=== PATIENT | female | born 1940 | race Two or more races ===

== ENCOUNTER 2019-06-07 22:24 | Inpatient (IN) | payer MEDICARE, BC ==
[~2019-06-07] VITALS: Ht 160 cm; Wt 49.1 kg
[2019-06-07] MEDS ORDERED: MAG HYDROX/AL HYDROX/SIMETH 30 ML UDC PO PRN (23:30)
[2019-06-07] MEDS ORDERED: BLOOD SUGAR DIAGNOSTIC 1 EACH STRIP IN ONE (23:30)
[2019-06-07] MEDS: SULFAMETH/TRIMETH 800/160 MG 1 UDTAB TABLET PO SCH (23:30)
[2019-06-07] MEDS ORDERED: MAGNESIUM HYDROXIDE 30 ML UDC PO PRN (23:30)
[2019-06-07] MEDS: LACOSAMIDE 50 MG TABLET PO SCH (23:30)
--- NOTE | 2019-06-08 00:31 | NUR ---
GPS RN NOTES: PT REFUSED 2330 SCHEDULE MEDICATION BACTRIM AND VIMPAT PO. PT STATED, "I DONT WANT TO TAKE ANYTHING RIGHT NOW!" EXPLAINED RISKS AND BENEFITS X3 STILL REFUSED. CONTINUE TO MONITOR.
[2019-06-08] MEDS: TEMAZEPAM 7.5 MG CAPSULE PO PRN ×2 (00:51→21:46)
--- NOTE | 2019-06-08 00:53 | NUR ---
GPS RN NOTES: PT STATED, " I HAVNT SLEEP IN 2 DAYS. WHERES MY MEDICATION. I WANT OT SLEEP!" OFFERED RESTORIL 7.5 MG PO PRN ORDERED. PT TOLERATED MEDICATION WELL. CONTINUE TO MONITOR.
[2019-06-08 01:46] VITALS: BP 118/68
--- NOTE | 2019-06-08 01:54 | NUR ---
GPS RN NOTES: ADMITTED 78 Y/O FEMALE. [facility] GPS UNIT ON A 5150. PER HOLD, PT CAME FROM HER LONG-TERM DUE TO BEING AGITATED, AGGRESSIVE, STRIKING OUT ON STAFF AND UNABLE TO CONTRACT SAFETY. UPON FACE TO FACE ASSESSMENT PT IS ALERT/ ORIENTED X1, UNCOOPERATIVE, CONFUSED, FORGETFUL, DISORGANIZED, POOR HISTORIAN, AGITATED, NEEDY, AND POOR IMPULSE CONTROL. PT STATED, " I DONT KNOW WHY IM HERE!" ROWAN S/I AND H/I AT THE MOMENT. PT WAS FROM [place] AND CAN SPEAK AND UNDERSTANDS STATELESS. PT REFUSED TO SIGN CONSENT6 FORM DUE TO BEING CONFUSED. ENVIRONMENTAL SAFETY CHECK DONE Q15 MIN. ENCOURAGE PT TO VERBALIZE FEELINGS AND CONCERNS TO STAFF. ORIENTED TO THE UNIT. CHECKED BELONGING AND CONTRABAND. NURSING ASSESSMENT DONE. PT REFUSED PICTURE FOR IDENTIFICATION. HOME ECONOMICS EXPERT CHANGE PT NIGHT GOWN, HOME ECONOMICS EXPERT NOTED DRESSING ON PTS SACRAL AREA NEAR BUTTOCKS. PT REFUSED BODY ASSESSMENT AND ASSESSMENT OF DRESSING AREA. PT REFUSED PICTURE WELL. PT STATED, "I DONT WANT TO TAKE ANY PICTURE. IM GOING TO GET MAD RIGHT NOW! STOP! ALL I WANT IS TO SLEEP!" EXPLAINED THE RISKS AND BENEFITS X3. PT STILL REFUSED. WOUND CONSULT ORDERED. INITIAL BLOOD SUGAR CHECKED AND DONE PROVIDE PT W/ HANDBOOK AND MED GUIDE. VITALS ARE W/ NORMAL LEVELS. NO S/S OF RESP DISTRESS. BREATHING EVEN AND UNLABORED. CONTINUE TO MONITOR.
[2019-06-08 03:10] VITALS: BP 122/52
[2019-06-08] MEDS: clonazePAM 0.5 MG TABLET PO PRN ×2 (03:16→07:52)
--- NOTE | 2019-06-08 03:17 | NUR ---
GPS RN NOTES: UPON DOING ROUNDS PT IS VERY UNCOOPERATIVE, UNABLE TO FOLLOW DIRECTIONS, SCREAMING, BANGING HANDS ON TABLE, GETTING OUT OF BED, PARANOID, IRRITABLE, HYPERVERBAL, AND ANXIOUS. PT IS YELLING, "NOMAN WALLER!" OFFERED KLONOPIN 0.5 MG PO PRN ORDERED. PT AGREED AND TOLERATED MEDICATION WELL CONTINUE TO MONITOR.
--- NOTE | 2019-06-08 07:13 | NUR ---
DR. SCHAEFER NOTIFIED CALLED & LEFT A VOICEMAIL TO OLIVE JACOBS THAT MIGUELArchieDASHA WAS ADMITTED UNDER HIS CARE.
--- NOTE | 2019-06-08 07:17 | NUR ---
GPS RN NOTES: PT ALLOWED TO CHECK BODY AND TAKE PICTURES. PICTURES FILED INTO CHART. PT PRESENTED LUE ARM AND RUE ARM DISCOLORATION AND REDNESS ON SACRUM AREA. CONT TO MONITOR.
[2019-06-08] MEDS ORDERED: PANT40TA2 PO (07:47)
[2019-06-08] MEDS ORDERED: CLON0.1T PO (07:47)
[2019-06-08] MEDS ORDERED: DIVA500T54 PO (07:47)
[2019-06-08] MEDS ORDERED: LACO50TA2 PO (07:47)
[2019-06-08] MEDS ORDERED: SULF1TAB48 PO (07:47)
[2019-06-08] MEDS ORDERED: QUET25TA PO (07:47)
[2019-06-08] MEDS ORDERED: TEMA30CA PO (07:47)
[2019-06-08] MEDS ORDERED: LORA-258 PO (07:47)
[2019-06-08 08:00] VITALS: BP 106/78
[2019-06-08] MEDS: LACOSAMIDE 50 MG TABLET PO SCH ×2 (08:03→21:45)
[2019-06-08] MEDS: PANTOPRAZOLE 40 MG TABLET.DR PO SCH (08:03)
[2019-06-08] MEDS: SULFAMETH/TRIMETH 800/160 MG 1 UDTAB TABLET PO SCH ×2 (08:03→21:46)
[2019-06-08 08:04] LABS: ALBUMIN 2.8 g/dL (3.4-5.0); BILIRUBIN,TOTAL 0.3 mg/dL (0.2-1.0); CALCIUM, SERUM 9.2 mg/dL (8.5-10.1); CREATININE 0.8 mg/dL (0.6-1.3); POTASSIUM 3.7 mmol/L (3.5-5.1); TOTAL PROTEIN, SERUM 7.3 g/dL (6.4-8.2)
[2019-06-08 08:29] LABS: CHOLESTEROL 175 mg/dL (<200); HDL CHOLESTEROL 56 mg/dL (40-60); LDL 104 mg/dL (0-99); TRIGLYCERIDES 112 mg/dL (30-150)
--- NOTE | 2019-06-08 11:45 | NUR ---
WOUND CARE CONSULT: PT PRESENTS WITH SACRAL SCAR, PRESENT ON ADMISSION. RECOMMENDATIONS MADE FOR SKIN PROTECTION. DISCUSSED WITH NURSING STAFF. WILL SEE PRN. MUNIZ IN AGREEMENT WITH PLAN OF CARE. Addendum: 06/08/19 at 1145 by CAIT MORFIN WNDNU Amended: Links added.
[2019-06-08] MEDS: Z GUARD REMEDY 2 OZ OINT TP SCH (12:50)
--- NOTE | 2019-06-08 15:09 | NUR ---
Group Note: SW encouraged pt to participate in group on 06/08/19 at 2pm discussing discharge planning. Pt appeared to be confused and disoriented and was unable to participate group therapy. Pt also presented in a gerichair and appeared to be aggressive. Pt stated that her son takes care of all her affairs and she does not know what the SW was talking about with the facilities that were mentioned to her.
--- NOTE | 2019-06-08 15:36 | NUR ---
DPOA Contact: PIPPA called the pts son, Alfreda ([phone]), and discussed the pts initial treatment and discharge plan. Pts son stated that he does not want the pt to return to [facility] and wants the pt to be at [facility] in [place].
[2019-06-08 16:00] VITALS: BP 137/86
--- NOTE | 2019-06-08 16:12 | NUR ---
Initial Discharge Plan: Pt currently resides at [facility] located at [address] [place] [address]; . Per pt's son, Alfreda ([phone]), he would like the pt to be discharged to a different facility. PIPPA will work with the MD and the pt and pts DPOA regarding appropriate discharge planning. SW will form a safe and proper discharge.
[2019-06-08] MEDS: QUETIAPINE FUMARATE 25 MG TABLET PO SCH (16:26)
--- NOTE | 2019-06-08 17:36 | NUR ---
GPS RN NOTE: DR MCKEON NOTIFIED TO RECONCILED PT HOME MEDICATION SEIZURE MEDICATION AND PT CT OF HEAD WAS DONE THREE TIME LAST ONE YESTERDAY PT FAMILY.WILL CONTINUE MONITORING.
[2019-06-08 19:38] VITALS: BP 99/63
[2019-06-08] MEDS ORDERED: MIRTAZAPINE 15 MG TABLET PO SCH (22:00)
--- NOTE | 2019-06-09 02:45 | NUR ---
PT UP MOST OF THE NIGHT AFTER TAKING PM MEDS AND RESTORIL 7.5MG FOR SLEEP. REFUSED GOING TO BED, STATING SHE WANTS TO REMAIN IN DAY ROOM. DISORIENTED, LABILE, NEEDY. WILL CONTINUE TO MONITOR.
--- NOTE | 2019-06-09 07:50 | NUR ---
GPS RN NOTE: DR MCKEON IN THE UNIT AWARE OF TO RECONCILED DEPAKOTE FOR SEIZURE,NEW ORDER TO DC CT OF HEAD ORDER PLACED AND CARED OUT . WILL CONTINUE MONITORING.
[2019-06-09 08:00] VITALS: BP 133/68
[2019-06-09] MEDS: clonazePAM 0.5 MG TABLET PO PRN (08:01)
[2019-06-09] MEDS: LACOSAMIDE 50 MG TABLET PO SCH ×2 (08:01→20:21)
[2019-06-09] MEDS: PANTOPRAZOLE 40 MG TABLET.DR PO SCH (08:01)
[2019-06-09] MEDS: SULFAMETH/TRIMETH 800/160 MG 1 UDTAB TABLET PO SCH ×2 (08:01→20:20)
[2019-06-09] MEDS: Z GUARD REMEDY 2 OZ OINT TP SCH (08:04)
[2019-06-09] MEDS: QUETIAPINE FUMARATE 25 MG TABLET PO SCH ×2 (08:05→21:50)
--- NOTE | 2019-06-09 08:10 | NUR ---
GPS RN NOTE: PT FEELING ANXIOUS KLONOPIN 0.5 MG PO PRN GIVEN PER ORDER.
[2019-06-09] MEDS ORDERED: CLONIDINE HCL 0.1 MG TABLET PO PRN (10:00)
[2019-06-09] MEDS ORDERED: SULFAMETH/TRIMETH 800/160 MG 1 UDTAB TABLET PO SCH (10:00)
[2019-06-09] MEDS: DIVALPROEX SODIUM 500 MG TABLET.DR PO SCH ×2 (10:40→20:20)
[2019-06-09 16:00] VITALS: BP 155/73
[2019-06-09 18:06] LABS: APPEARANCE,URINE CLOUDY (CLEAR); BILIRUBIN,URINE SMALL (NEGATIVE); BLOOD, URINE LARGE Ery/uL (NEGATIVE); COLOR,URINE ORANGE (YELLOW); KETONES,URINE NEGATIVE (NEGATIVE); LEUKOCYTE ESTERASE ,URINE LARGE (NEGATIVE); NITRITE, URINE NEGATIVE (NEGATIVE); PH,URINE 6.5 (5.0-8.0); PROTEIN,URINE 30 mg/dl (NEGATIVE); UGLUCOSE NEGATIVE (NEGATIVE); UROBILINOGEN,URINE 0.2 EU/dL (0.2)
[2019-06-09 18:38] LABS: RBC,URINE 21-50 /HPF (0-2)
[2019-06-09 18:39] LABS: BACTERIA,URINE Moderate /HPF (None Seen); SQUAMOUS EPITHELIAL CELL,UR Few /HPF (None Seen); WBC,URINE TOO NUMEROUS TO COUN /HPF (0-3)
[2019-06-09 20:00] VITALS: BP 134/81
--- NOTE | 2019-06-09 20:30 | NUR ---
GPS RN NOTES TOOK HER PO MEDS, CRUSHED WITH PUDDING.
[2019-06-09] MEDS ORDERED: LACOSAMIDE 50 MG TABLET PO SCH (21:00)
[2019-06-09] MEDS: TRAZODONE 50 MG TABLET PO SCH (21:48)
[2019-06-09] MEDS: MIRTAZAPINE 15 MG TABLET PO SCH (21:48)
--- NOTE | 2019-06-09 22:00 | NUR ---
GPS RN NOTES STARTED ON TRAZODONE,SEROQUEL AND REMERON,CRUSHED AND MIXED WITH PUDDING,TOOK ONLY 50% OF IT.
[2019-06-09 22:14] VITALS: BP 134/81
--- NOTE | 2019-06-10 01:34 | NUR ---
GPS RN NOTES DOOZING OFF SITTING ON JESUS CHAIR,BEING WATCHED BY CATH LABORATORY TECHNICIAN IN THE DINING ROOM,TALKING TO SELF AT TIMES.
[2019-06-10] MEDS: TEMAZEPAM 15 MG CAPSULE PO PRN ×2 (01:44→21:44)
--- NOTE | 2019-06-10 01:44 | NUR ---
GPS RN NOTES ON JESUS CHAIR,AWAKE,VERBALLY ABUSIVE,TALKING TO SELF MOST OF THE TIME,CURSING STAFF.MEDICATED WITH RESTORIL 15MG PO MIXED WITH APPLE SAUCE,TAKEN WELL.
--- NOTE | 2019-06-10 03:00 | NUR ---
GPS RN NOTES SLEEPING THIS TIME
[2019-06-10] MEDS: DIVALPROEX SODIUM 500 MG TABLET.DR PO SCH ×3 (05:00→20:49)
[2019-06-10] MEDS: PANTOPRAZOLE 40 MG TABLET.DR PO SCH (07:35)
--- NOTE | 2019-06-10 07:45 | NUR ---
RN NOTE- DURING MED PASS, THIS RN FOUND PT SITTING ON FLOOR BESIDE CHAIR IN ROOM. PT ALERT, ORIENTED TO SELF, EVALUATION SHOWS NO APPARENT INJURIES, PAIN OR SKIN PROBLEMS. VS - 102/65. HR-92, RR- 18, TEMP- 98.1, SATURATION 99% RA. SALES CONSULTANT INSURANCE, AND CARTOGRAPHIC ENGINEER NOTIFIED. ATTEMPTED TO CALL LILLI- BROTHER OF PT TO NOTIFY BUT NO VM SET UP AND NO ANSWER. ALEKSEY DICKINSON TO SEE PT TODAY. WILL MONITOR. INCIDENT REPORT COMPLETED.
[2019-06-10 08:00] VITALS: BP 143/81
[2019-06-10] MEDS: SULFAMETH/TRIMETH 800/160 MG 1 UDTAB TABLET PO SCH ×2 (08:13→20:48)
[2019-06-10] MEDS: LACOSAMIDE 50 MG TABLET PO SCH ×2 (08:13→20:48)
[2019-06-10] MEDS: QUETIAPINE FUMARATE 25 MG TABLET PO SCH ×2 (08:13→21:44)
[2019-06-10] MEDS: Z GUARD REMEDY 2 OZ OINT TP PRN (08:14)
[2019-06-10] MEDS: Z GUARD REMEDY 2 OZ OINT TP SCH (08:14)
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
[2019-06-10 16:00] VITALS: BP 110/70
[2019-06-10 20:20] VITALS: BP 100/67
[2019-06-10] MEDS: TRAZODONE 50 MG TABLET PO SCH (21:43)
[2019-06-10] MEDS: MIRTAZAPINE 15 MG TABLET PO SCH (21:43)
--- NOTE | 2019-06-10 22:48 | NUR ---
PT ASKED FOR MEDICATION FOR SLEEP. RESTORIL 15MG GIVEN PO ORDERED AT 2144, AT 2244 PT STILL AWAKE. WILL CONTINUE TO MONITOR.
[2019-06-11] MEDS: DIVALPROEX SODIUM 500 MG TABLET.DR PO SCH ×3 (05:13→21:36)
--- NOTE | 2019-06-11 06:57 | NUR ---
PT HAS SLIGHT TREMORS ON BOTH HANDS. PER PT SON SHE HAS BEEN ON VALIUM FOR OVER FORTY YEARS AND WOULD WANT HER TO BE PUT BACK ON IT. WILL ENDORSE TO AM SHIFT TO REPORT TO .
[2019-06-11 08:00] VITALS: BP 134/69
[2019-06-11] MEDS: Z GUARD REMEDY 2 OZ OINT TP SCH (08:22)
[2019-06-11] MEDS: QUETIAPINE FUMARATE 25 MG TABLET PO SCH (08:22)
[2019-06-11] MEDS: PANTOPRAZOLE 40 MG TABLET.DR PO SCH (08:22)
[2019-06-11] MEDS: LACOSAMIDE 50 MG TABLET PO SCH ×2 (08:22→21:36)
[2019-06-11] MEDS: clonazePAM 0.5 MG TABLET PO PRN (13:37)
[2019-06-11] MEDS: ACETAMINOPHEN 325 MG TABLET PO PRN (13:37)
--- NOTE | 2019-06-11 13:41 | NUR ---
PATIENT C/O PAIN 5/10 IN LOWER BACK AND IS ANXIOUS. PRN TYLENOL AND KLONOPIN PO GIVEN.
[2019-06-11 16:00] VITALS: BP 138/71
[2019-06-11 19:59] VITALS: BP 136/78
[2019-06-11] MEDS: TRAZODONE 50 MG TABLET PO SCH (21:36)
[2019-06-11] MEDS: MIRTAZAPINE 15 MG TABLET PO SCH (21:36)
[2019-06-11] MEDS ORDERED: QUETIAPINE FUMARATE 25 MG TABLET PO SCH (22:00)
[2019-06-12] MEDS: TEMAZEPAM 15 MG CAPSULE PO PRN ×3 (00:25→23:22)
[2019-06-12] MEDS: DIVALPROEX SODIUM 500 MG TABLET.DR PO SCH ×3 (05:07→21:49)
[2019-06-12 08:00] VITALS: BP 149/79
[2019-06-12] MEDS: clonazePAM 0.5 MG TABLET PO PRN ×2 (08:23→16:32)
[2019-06-12] MEDS: LACOSAMIDE 50 MG TABLET PO SCH ×2 (08:23→21:50)
[2019-06-12] MEDS: PANTOPRAZOLE 40 MG TABLET.DR PO SCH (08:24)
[2019-06-12] MEDS: Z GUARD REMEDY 2 OZ OINT TP SCH (08:24)
[2019-06-12] MEDS: QUETIAPINE FUMARATE 25 MG TABLET PO SCH (08:24)
--- NOTE | 2019-06-12 08:26 | NUR ---
PATIENT IS RESTLESS. PRN KLONOPIN GIVEN.
[2019-06-12 16:00] VITALS: BP 117/81
[2019-06-12] MEDS: ACETAMINOPHEN 325 MG TABLET PO PRN (16:32)
--- NOTE | 2019-06-12 16:32 | NUR ---
PRN TYLENOL AND KLONOPIN GIVEN FOR PAIN AND RESTLESSNESS
[2019-06-12 20:14] VITALS: BP 128/73
[2019-06-12] MEDS: TRAZODONE 50 MG TABLET PO SCH (21:49)
[2019-06-12] MEDS: QUETIAPINE FUMARATE 100 MG TABLET PO SCH (21:49)
[2019-06-12] MEDS: MIRTAZAPINE 15 MG TABLET PO SCH (21:50)
[2019-06-13] MEDS: DIVALPROEX SODIUM 500 MG TABLET.DR PO SCH ×3 (05:10→21:12)
[2019-06-13 08:00] VITALS: BP 118/71
[2019-06-13] MEDS: PANTOPRAZOLE 40 MG TABLET.DR PO SCH (08:06)
[2019-06-13] MEDS: QUETIAPINE FUMARATE 25 MG TABLET PO SCH ×2 (08:44→08:45)
[2019-06-13] MEDS: Z GUARD REMEDY 2 OZ OINT TP SCH (08:44)
[2019-06-13] MEDS: LACOSAMIDE 50 MG TABLET PO SCH ×2 (08:44→21:12)
--- NOTE | 2019-06-13 09:27 | NUR ---
Assisted Living Referral: PIPPA faxed a referral to [facility] with attn to the Sales Department to the fax number: [phone].
[2019-06-13 16:00] VITALS: BP 133/69
[2019-06-13] MEDS: clonazePAM 0.5 MG TABLET PO PRN (16:26)
--- NOTE | 2019-06-13 16:26 | NUR ---
RN NOTE: PT AGITATED. BANGING ON THE HER TABLE YELLING " RAJNI,RAJNI". MED WITH CLONAZEPAAM 0.5MGPO PRN
[2019-06-13 20:42] VITALS: BP 128/55
[2019-06-13] MEDS: QUETIAPINE FUMARATE 100 MG TABLET PO SCH (21:59)
[2019-06-13] MEDS: TRAZODONE 50 MG TABLET PO SCH (21:59)
[2019-06-13] MEDS: MIRTAZAPINE 15 MG TABLET PO SCH (21:59)
[2019-06-13] MEDS: TEMAZEPAM 15 MG CAPSULE PO PRN (22:26)
[2019-06-14] MEDS: DIVALPROEX SODIUM 500 MG TABLET.DR PO SCH ×3 (05:06→21:00)
[2019-06-14 08:00] VITALS: BP 144/59
[2019-06-14] MEDS: PANTOPRAZOLE 40 MG TABLET.DR PO SCH (08:21)
[2019-06-14] MEDS: QUETIAPINE FUMARATE 25 MG TABLET PO SCH ×2 (08:21)
[2019-06-14] MEDS: LACOSAMIDE 50 MG TABLET PO SCH ×2 (08:21→21:00)
[2019-06-14] MEDS: Z GUARD REMEDY 2 OZ OINT TP SCH (08:22)
[2019-06-14] MEDS: clonazePAM 0.5 MG TABLET PO PRN (09:19)
--- NOTE | 2019-06-14 09:19 | NUR ---
RN NOTE: PT SCREAMING AND YELLING. VISIBLY AGITATED. MED WITH KLONIPIN 0.5 MG PO PRN
--- NOTE | 2019-06-14 09:44 | NUR ---
Assisted Living Contact: SW called [facility] and spoke to the javascript front end developer asking to speak to the admissions department and the SW was told that they were not available at this time so the SW left a message. SW will follow up.
--- NOTE | 2019-06-14 09:47 | NUR ---
DPOA Contact: PIPPA called the pts son, Alfreda ([phone]), and he stated that he would like to try the assisted living facility called [facility]. He stated that the one in [place] is too far.
--- NOTE | 2019-06-14 09:58 | NUR ---
Assisted Living Referral: PIPPA faxed a referral to [place] [facility] to the fax number: [phone].
--- NOTE | 2019-06-14 10:02 | NUR ---
Probable Cause (PC) Hearing Notification: PIPPA called the pts son, Alfreda ([phone]), and informed him about the process and all the possible outcomes. He stated that he cannot be involved with the meeting today but does not think that the pt should be released from her hold because she cannot care for herself.
--- NOTE | 2019-06-14 10:50 | NUR ---
Assisted Living Contact: Vika from [facility] stated that they are unable to accept the pt because she appears to be far too psychotic and has medical needs.
[2019-06-14 16:00] VITALS: BP 130/60
[2019-06-14] MEDS: ACETAMINOPHEN 325 MG TABLET PO PRN (19:26)
[2019-06-14 20:43] VITALS: BP 108/71
[2019-06-14] MEDS: TRAZODONE 50 MG TABLET PO SCH (21:00)
[2019-06-14] MEDS: QUETIAPINE FUMARATE 100 MG TABLET PO SCH (21:01)
[2019-06-14] MEDS: MIRTAZAPINE 15 MG TABLET PO SCH (21:01)
[2019-06-15] MEDS: DIVALPROEX SODIUM 500 MG TABLET.DR PO SCH ×3 (06:05→20:57)
[2019-06-15 08:00] VITALS: BP 139/79
[2019-06-15] MEDS: PANTOPRAZOLE 40 MG TABLET.DR PO SCH (08:27)
[2019-06-15] MEDS: QUETIAPINE FUMARATE 25 MG TABLET PO SCH (08:27)
[2019-06-15] MEDS: ACETAMINOPHEN 325 MG TABLET PO PRN ×2 (08:28→18:11)
[2019-06-15] MEDS: LACOSAMIDE 50 MG TABLET PO SCH ×2 (08:28→20:57)
[2019-06-15] MEDS: clonazePAM 0.5 MG TABLET PO PRN ×2 (08:28→18:11)
[2019-06-15] MEDS: Z GUARD REMEDY 2 OZ OINT TP SCH (08:34)
--- NOTE | 2019-06-15 09:15 | NUR ---
PRN TYLENOL AND KLONOPIN GIVEN FOR RESTLESSNESS AND PAIN 4/10 TO LOWER BACK
--- NOTE | 2019-06-15 10:54 | NUR ---
DPOA Contact: PIPPA called the pts son, Alfreda ([phone]), and left a voicemail stating that the SW would like to discuss the pts discharge to an Assisted Living because [facility] has denied the pt.
--- NOTE | 2019-06-15 12:24 | NUR ---
DPOA Contact: PIPPA called the pts son, Alfreda ([phone]), after he left the SW a voicemail. PIPPA and DPOA discussed that the pt is not being accepted at [facility] and PIPPA stated that he may want to consider alternative placement. PIPPA recommended [facility] and informed him that the will be sending a referral.
--- NOTE | 2019-06-15 14:18 | NUR ---
Assisted Living Referral: PIPPA faxed a referral to [facility] with attn to Pierce to the fax number: [phone].
[2019-06-15 16:00] VITALS: BP 105/62
--- NOTE | 2019-06-15 16:20 | NUR ---
Assisted Living Contact: Lainey ([phone]) from [facility] called the SW and stated that she will contact the pts son to discuss the pt and whether or not she will be accepted to their facility.
--- NOTE | 2019-06-15 16:22 | NUR ---
Placement Referral: PIPPA faxed a referral to [facility] (with attn to Carlos Manuel) to the fax number: [phone].
--- NOTE | 2019-06-15 18:17 | NUR ---
PRN TYLENOL AND KLONOPIN GIVEN FOR RESTLESSNESS AND PAIN TO LOWER BACK
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
[2019-06-15 20:00] VITALS: BP 99/59
[2019-06-15 20:09] VITALS: BP 99/59
[2019-06-15 20:50] VITALS: BP 104/63
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
[2019-06-15] MEDS: MIRTAZAPINE 15 MG TABLET PO SCH (22:18)
[2019-06-15] MEDS: QUETIAPINE FUMARATE 100 MG TABLET PO SCH (22:18)
[2019-06-15] MEDS: TRAZODONE 50 MG TABLET PO SCH (22:18)
--- NOTE | 2019-06-15 23:43 | NUR ---
GPS RN NOTE PATIENT HAD PT EVAL BEFORE BUT NO NOTES NOTED FROM PT EVAL. SON REQUESTED ANOTHER PT EVAL AGAIN, MADE AWARE WITH NEW ORDER. NOTED & CARRIED OUT. WILL ENDORSE TO AM RN TO F/U WITH PT IN AM.
[2019-06-16] MEDS: Z GUARD REMEDY 2 OZ OINT TP PRN (00:10)
[2019-06-16] MEDS: DIVALPROEX SODIUM 500 MG TABLET.DR PO SCH ×3 (05:02→21:22)
--- NOTE | 2019-06-16 05:58 | NUR ---
GPS RN NOTE AFTER BEGINNING OF TREND INVESTIGATOR, WHILE ASSISTING PATIENT TO BED SINCE SHE WAS READY TO SLEEP, PATIENT NOTED WITH RIGHT & LEFT BUTTOCK REDNESS/WOUND. UNABLE TO TAKE THE PICTURE & MEASUREMENTS OF THE WOUND AREA AT THAT TIME DUE TO PATIENT'S UNCOOPERATIVE BEHAVIOR. KEPT CLEAN & DRY, Z GUARD APPLIED. REMINDED THE PT. TO TURN & REPOSITION IN BED. PATIENT IS ABLE TO TURN & REPOSITION IN BED INDEPENDENTLY. PICTURE TAKEN AT THIS TIME BUT EXACT MEASUREMENTS WERE NOT DONE BECAUSE PT. GETS EASILY AGITATED & ANXIOUS WHEN TURNED TO THE SIDE FOR LONG TIME. WILL ENDORSE TO AM SHIFT TO TAKE THE MEASUREMENTS. MADE AWARE. WOUND CARE CONSULT ORDERED. INVERTER AND CLIPPER & ADULT EDUCATION INSTRUCTOR NOTIFIED. WILL CONTINUE TO MONITOR THE PATIENT FOR ANY CHANGES.
[2019-06-16] MEDS: ACETAMINOPHEN 325 MG TABLET PO PRN (07:26)
[2019-06-16] MEDS: clonazePAM 0.5 MG TABLET PO PRN (07:26)
--- NOTE | 2019-06-16 07:30 | NUR ---
PRN KLONOPIN PATIENT IS VERY ANXIOUS, RESTLESS, SCREAMING AT THIS TIME. PRN KLONOPIN 0.25 MG PO GIVEN.
--- NOTE | 2019-06-16 07:31 | NUR ---
PRN TYLENOL GIVEN PATIENT C/O LOWER BACK PAIN & WANTED TO TAKE PAIN MEDICINE, PRN TYLENOL 650 MG PO GIVEN.
--- NOTE | 2019-06-16 07:47 | NUR ---
GPS RN NOTE CALLED PT'S SON FLACA, NOTIFIED HIM ABOUT SKIN ASSESSMENT FINDINGS OF RIGHT & LEFT BUTTOCK. SON VERBALIZED THAT HE WANTS TO TALK TO THE DIRECTOR OF THE UNIT. AM CHARGE NURSE & PRIMARY CARE NURSE MADE AWARE ABOUT FLACA'S CONCERN. AM RN STATED THAT SHE WILL GIVE THE MESSAGE TO DENNYS. BUSINESS LOAN PROCESSOR CHARGE NURSE HAVE ALSO INFORMED TO ROCK WOOL APPLICATOR OF THE UNIT. ENDORSED TO AM RN TO TAKE THE MEASUREMENTS OF RIGHT & LEFT BUTTOCK REDNESS/WOUND WELL SINCE PATIENT IS VERY ANXIOUS, RESTLESS, YELLING/SCREAMING & UNCOOPERATIVE AT THIS TIME.
--- NOTE | 2019-06-16 07:59 | NUR ---
PATIENT IS BEING VERY RESISTIVE WITH CARE THIS MORNING. PATIENT SCREAMING AND NOT LETTING US PROCEED WITH CARE. FAILED ATTEMPTS AT TRYING TO OFFLOAD BUTTOCKS.
[2019-06-16 08:00] VITALS: BP 125/73
--- NOTE | 2019-06-16 08:26 | NUR ---
UNABLE TO RE-DIRECT PATIENT. PATIENT IS SHOUTING CALLING EVERYONE DEANNA. HAVE TO INFORM PATIENT MULTIPLE TIMES NOT TO SHOUT.
[2019-06-16] MEDS: QUETIAPINE FUMARATE 25 MG TABLET PO SCH (08:29)
[2019-06-16] MEDS: LACOSAMIDE 50 MG TABLET PO SCH ×2 (08:29→21:22)
[2019-06-16] MEDS: PANTOPRAZOLE 40 MG TABLET.DR PO SCH (08:29)
[2019-06-16] MEDS: Z GUARD REMEDY 2 OZ OINT TP SCH (08:29)
--- NOTE | 2019-06-16 10:48 | NUR ---
WOUND CARE CONSULT PATIENT SEEN AND SKIN INTEGRITY ASSESSMENT DONE. PATIENT PRESENTS WITH BILATERAL BUTTOCKS INCONTINENT ASSOCIATED SKIN DAMAGE WITH FUNGAL RASHES. TREATMENT RECOMMENDATIONS MADE, ALL SKIN MANAGEMENT DISCUSSED WITH NURSING STAFF AT THE BEDSIDE. PATIENT WITH OMA AT 17, PATIENT ABLE TO MOVE ALL EXTREMITIES, PATIENT IS VERY CONFUSED AND IS CONSTANTLY ATTEMPTING TO GET OUT OF BED. THERE IS A SITTER AT THE BEDSIDE FOR SAFETY. WOUND CARE WILL CONTINUE TO MONITOR. Addendum: 06/16/19 at 1052 by NATHANIEL ZELAYA WNELLENU Amended: Links added. Addendum: 06/16/19 at 1232 by NATHANIEL ZELAYA WNELLENU ADDITIONAL NOTE: LIMB DRIVER CALLED PTS SON AND SPOKE TO HIM AT LENGTH ABOUT PATIENT'S SKIN ISSUES AND PATIENT SON WAS GRATEFUL FOR THE PHONE CALL AND THE EXPLANATIONS GIVEN TO HIM.
--- NOTE | 2019-06-16 11:51 | NUR ---
Group Note: SW encouraged pt to participate in group on 06/15/19 at 2pm discussing discharge planning. Pt is manic and verbally aggressive. Pt was presented in a gerichair the whole day. Pt was inappropriate for group therapy. SW informed the pt that the SW is seeking placement in an Assisted Living and informed her that the SW has been in contact with the pts son.
[2019-06-16] MEDS: CLOTRIMAZOLE 1% 15 GM TUBE TP SCH ×2 (12:54→17:00)
[2019-06-16] MEDS ORDERED: QUETIAPINE FUMARATE 25 MG TABLET PO ONE (14:30)
[2019-06-16 16:00] VITALS: BP 122/71
[2019-06-16] MEDS ORDERED: METH1ADH6 TP (19:00)
[2019-06-16] MEDS: TRAZODONE 50 MG TABLET PO SCH (21:22)
[2019-06-16] MEDS: MIRTAZAPINE 15 MG TABLET PO SCH (21:22)
[2019-06-16] MEDS: QUETIAPINE FUMARATE 100 MG TABLET PO SCH (21:22)
[2019-06-16 22:14] VITALS: BP 105/59
[2019-06-17] MEDS: DIVALPROEX SODIUM 500 MG TABLET.DR PO SCH ×3 (05:29→21:42)
[2019-06-17 07:03] LABS: BASOPHILS % (AUTO) 0.9 % (0.0-2.0); EOSINOPHILS % (AUTO) 1.6 % (0.0-6.0); HEMATOCRIT 41 % (33-45); HEMOGLOBIN 13.6 g/dL (11.5-14.8); LYMPHOCYTES # (AUTO) 1.8 /CMM (0.8-4.8); LYMPHOCYTES % (AUTO) 44.2 % (20.0-44.0); MEAN CORPUSCULAR HGB CONC 33 g/dl (31.0-36.0); MEAN CORPUSCULAR VOLUME 92 fL (82-100); MONOCYTES # (AUTO) 0.5 /CMM (0.1-1.30); MONOCYTES % (AUTO) 12.5 % (2.0-12.0); NEUTROPHILS # (AUTO) 1.6 /CMM (1.8-8.9); NEUTROPHILS % (AUTO) 40.8 % (43.0-81.0); PLATELET COUNT (AUTO) 187 /CMM (150-450); RED BLOOD CELL COUNT(AUTO) 4.51 MIL/uL (4.0-5.2)
[2019-06-17 07:16] LABS: CALCIUM, SERUM 8.7 mg/dL (8.5-10.1); CREATININE 0.8 mg/dL (0.6-1.3); POTASSIUM 3.8 mmol/L (3.5-5.1)
[2019-06-17 08:00] VITALS: BP 127/76
[2019-06-17] MEDS: LACOSAMIDE 50 MG TABLET PO SCH ×2 (08:31→21:41)
[2019-06-17] MEDS: Z GUARD REMEDY 2 OZ OINT TP SCH (08:31)
[2019-06-17] MEDS: PANTOPRAZOLE 40 MG TABLET.DR PO SCH (08:31)
[2019-06-17] MEDS: clonazePAM 0.5 MG TABLET PO PRN (08:39)
[2019-06-17] MEDS ORDERED: QUETIAPINE FUMARATE 25 MG TABLET PO SCH (09:00)
[2019-06-17] MEDS ORDERED: CEPHALEXIN MONOHYDRATE 500 MG CAPSULE PO SCH (12:00)
[2019-06-17] MEDS: CLOTRIMAZOLE 1% 15 GM TUBE TP SCH ×2 (12:30→16:34)
[2019-06-17] MEDS: CEPHALEXIN MONOHYDRATE 500 MG CAPSULE PO SCH ×2 (12:32→23:47)
[2019-06-17] MEDS: OLANZAPINE 2.5 MG TABLET PO SCH ×2 (14:57→16:35)
[2019-06-17 16:00] VITALS: BP 119/68
[2019-06-17 20:40] VITALS: BP_SYST 113; BP_SYST 119; BP_DIAS 68; BP_DIAS 70
[2019-06-17] MEDS: TRAZODONE 50 MG TABLET PO SCH (21:41)
[2019-06-17] MEDS: MIRTAZAPINE 15 MG TABLET PO SCH (21:42)
[2019-06-17] MEDS: TEMAZEPAM 15 MG CAPSULE PO PRN (21:48)
[2019-06-18] MEDS: DIVALPROEX SODIUM 500 MG TABLET.DR PO SCH ×3 (06:00→21:33)
[2019-06-18 08:00] VITALS: BP 121/81
[2019-06-18] MEDS: LACOSAMIDE 50 MG TABLET PO SCH ×2 (08:20→21:33)
[2019-06-18] MEDS: OLANZAPINE 2.5 MG TABLET PO SCH ×2 (08:20→16:07)
[2019-06-18] MEDS: Z GUARD REMEDY 2 OZ OINT TP SCH (08:21)
[2019-06-18] MEDS: CEPHALEXIN MONOHYDRATE 500 MG CAPSULE PO SCH ×2 (08:21→23:11)
[2019-06-18] MEDS: CLOTRIMAZOLE 1% 15 GM TUBE TP SCH ×2 (08:21→16:08)
[2019-06-18] MEDS: clonazePAM 0.5 MG TABLET PO PRN ×3 (08:24→19:47)
[2019-06-18] MEDS: PANTOPRAZOLE 40 MG TABLET.DR PO SCH (08:25)
[2019-06-18 16:00] VITALS: BP 119/68
--- NOTE | 2019-06-18 19:47 | NUR ---
RN NOTE: PT RESTLESS AND AGITATED. MEDIATED WITH KLONOPIN PRN.
[2019-06-18 20:54] VITALS: BP 155/112
[2019-06-18] MEDS: TRAZODONE 50 MG TABLET PO SCH (21:33)
[2019-06-18] MEDS: TEMAZEPAM 15 MG CAPSULE PO PRN (21:34)
[2019-06-18] MEDS: MIRTAZAPINE 15 MG TABLET PO SCH (21:34)
--- NOTE | 2019-06-18 21:34 | NUR ---
RN NOTE: PT UNABLE TO SLEEP. RESTORIL PO GIVEN.
[2019-06-18] MEDS: ACETAMINOPHEN 325 MG TABLET PO PRN (23:11)
[2019-06-19] MEDS: DIVALPROEX SODIUM 500 MG TABLET.DR PO SCH ×3 (05:35→21:12)
[2019-06-19 08:00] VITALS: BP 100/63
[2019-06-19] MEDS: OLANZAPINE 2.5 MG TABLET PO SCH ×2 (08:25→16:44)
[2019-06-19] MEDS: PANTOPRAZOLE 40 MG TABLET.DR PO SCH (08:25)
[2019-06-19] MEDS: LACOSAMIDE 50 MG TABLET PO SCH ×2 (08:25→21:12)
[2019-06-19] MEDS: clonazePAM 0.5 MG TABLET PO PRN (08:25)
[2019-06-19] MEDS: ACETAMINOPHEN 325 MG TABLET PO PRN (08:25)
[2019-06-19] MEDS: Z GUARD REMEDY 2 OZ OINT TP SCH (08:26)
[2019-06-19] MEDS: CLOTRIMAZOLE 1% 15 GM TUBE TP SCH ×2 (08:26→16:45)
--- NOTE | 2019-06-19 08:39 | NUR ---
PRN TYLENOL AND KLONOPIN GIVEN FOR RESTLESSNESS AND PAIN TO LOWER BACK
[2019-06-19 12:17] LABS: BASOPHILS % (AUTO) 0.8 % (0.0-2.0); EOSINOPHILS % (AUTO) 0.8 % (0.0-6.0); HEMATOCRIT 42 % (33-45); HEMOGLOBIN 13.8 g/dL (11.5-14.8); LYMPHOCYTES # (AUTO) 1.5 /CMM (0.8-4.8); LYMPHOCYTES % (AUTO) 25.5 % (20.0-44.0); MEAN CORPUSCULAR HGB CONC 33 g/dl (31.0-36.0); MEAN CORPUSCULAR VOLUME 92 fL (82-100); MONOCYTES # (AUTO) 0.5 /CMM (0.1-1.30); MONOCYTES % (AUTO) 9.1 % (2.0-12.0); NEUTROPHILS # (AUTO) 3.8 /CMM (1.8-8.9); NEUTROPHILS % (AUTO) 63.8 % (43.0-81.0); PLATELET COUNT (AUTO) 142 /CMM (150-450); RED BLOOD CELL COUNT(AUTO) 4.54 MIL/uL (4.0-5.2)
[2019-06-19 12:35] LABS: ALBUMIN 2.7 g/dL (3.4-5.0); BILIRUBIN,TOTAL 0.4 mg/dL (0.2-1.0); CREATININE 0.8 mg/dL (0.6-1.3); TOTAL PROTEIN, SERUM 6.8 g/dL (6.4-8.2)
--- NOTE | 2019-06-19 12:43 | NUR ---
OFFERED TO WALK PATIENT. PATIENT STATED SHE DIDN'T WANT TO AND SHE'S TOO TIRED. SON CAME TO VISIT. ASKED HIM TO TRY TO ENCOURAGE PATIENT TO WALK AROUND UNIT WITH HIM. Addendum: 06/19/19 at 1339 by MINH PETERSON RN PATIENT WALKED FROM DINING ROOM TO END OF CR AND BACK WITH THE ASSISTANCE OF HIS SON AND MYSELF.
--- NOTE | 2019-06-19 15:05 | NUR ---
SON (FLACA) GAVE VERBAL CONSENT TO RELEASE INFORMATION TO [facility].
[2019-06-19 16:00] VITALS: BP 102/53
[2019-06-19] MEDS: ENSURE ENLIVE CHOC 237 ML CAN PO SCH (16:45)
[2019-06-19 20:50] VITALS: BP 115/73
--- NOTE | 2019-06-19 22:00 | NUR ---
RN NOTES : PT. REFUESD WEEKLY SKIN REASSEMNT AND PHOT TO BE TAKEN AT THIS TIME , PT. BEHAVIOR VERY UNCCOERTIVE ,HYPERVERBAL CONFUSED ,ANXIOUS , ENCOURAGED X3 STRONGLY STILL REFUSED, WILL CONTINUTY WITH CARE. Addendum: 06/19/19 at 2344 by TOMASZ YU RN RN NOTES : PT. REFUESD WEEKLY SKIN REASSEMNT AND PHOTO TO BE TAKEN AT THIS TIME , PT. BEHAVIOR VERY UNCOPERTIVE ,HYPERVERBAL CONFUSED ,ANXIOUS , ENCOURAGED X3 STRONGLY STILL REFUSED, WILL CONTINUTY WITH CARE.
[2019-06-19] MEDS: MIRTAZAPINE 15 MG TABLET PO SCH (22:10)
[2019-06-19] MEDS: TRAZODONE 50 MG TABLET PO SCH (22:10)
--- NOTE | 2019-06-19 23:40 | NUR ---
RN NOTES : PT. REFUESD WEEKLY SKIN REASSEMNT AND PHOTO TO BE TAKEN AT THIS TIME , PER PT. .MAY BE ANOTHER TIME , WILL TRYING AGAIN, WILL CONTINUITY WITH CARE.
[2019-06-20] MEDS: DIVALPROEX SODIUM 500 MG TABLET.DR PO SCH ×3 (05:30→21:19)
--- NOTE | 2019-06-20 05:30 | NUR ---
RN NOTES: UNABLE TO OBTAIN URINE SPECIMEN , PT. BEHAVIOR UNCOOPERTIVE.
--- NOTE | 2019-06-20 06:55 | NUR ---
RN NOTES: PT. ALLOWED TO WEEKLY SKIN ASSESSMENT AND PICTURES TAKEN AT THIS TIME , SKIN ASSESSMENT DONE, AND PICTURES PLACED IN THE CHART, WILL CONTINUITY WITH CARE.
[2019-06-20 08:00] VITALS: BP 119/68
[2019-06-20] MEDS: LACOSAMIDE 50 MG TABLET PO SCH ×2 (08:21→21:19)
[2019-06-20] MEDS: PANTOPRAZOLE 40 MG TABLET.DR PO SCH (08:21)
[2019-06-20] MEDS: OLANZAPINE 2.5 MG TABLET PO SCH ×2 (08:21→16:38)
[2019-06-20] MEDS: Z GUARD REMEDY 2 OZ OINT TP SCH (08:22)
[2019-06-20] MEDS: CLOTRIMAZOLE 1% 15 GM TUBE TP SCH ×2 (08:23→16:39)
--- NOTE | 2019-06-20 09:40 | NUR ---
Assisted Living Contact: PIPPA received a voicemail from Volodymyr from [facility] and when the SW called back this morning she was informed that Volodymyr would not be in at work until the following morning due to the holiday. PIPPA stated that she would call back the following day.
--- NOTE | 2019-06-20 10:15 | NUR ---
DPOA Contact: PIPPA called the pts son, Alfreda ([phone]), and he stated that before he can consider placement at this time he has concerns about the pt being sedated. Therefore PIPPA stated that she will relay the message to the MD and have him call the pts son.
--- NOTE | 2019-06-20 12:30 | NUR ---
DPOA Contact with MD: Pts called the pts son, Alfreda ([phone]), with the SW present and informed him of the pts progress with the new medications. MD urged the pts son to allow the SW to progress with finding placement for the pt so as to not be rushed when the discharge time approaches. informed the pts son that the pt is not ready at this time but the pt will be ready for discharge soon. SW then spoke to the son about allowing someone from [facility] to come assess the pt. Pt's son agreed.
[2019-06-20] MEDS ORDERED: TEMAZEPAM 15 MG CAPSULE PO PRN (14:30)
[2019-06-20 16:00] VITALS: BP 96/57
[2019-06-20] MEDS: ENSURE ENLIVE CHOC 237 ML CAN PO SCH (16:39)
--- NOTE | 2019-06-20 19:20 | NUR ---
GPS RN NOTES: RECEIVED PT. SITTING IN GERICAHIR, PER DY NURSE PT. NOT STAYING ON BED, VERY HIGH FALL RISKS, UNSTEADY GAIT UPON DOING ROUNDS PT IS VERY UNCOOPERATIVE, UNABLE TO FOLLOW DIRECTIONS, SCREAMING, BANGING UPPER LOWER EXTRIMITES WITH GERICHAIR, NOTED UPPER LOWER EXTRIMITES SELF INFLICTED SKIN DISCOLORATIONS PARANOID, IRRITABLE, HYPERVERBAL, AND ANXIOUS. PT IS YELLING SCREAMING, CHRISTIN HUERTA", PT. WAS CALLING BY DIFFRENT NAME REALITY ORIENTATION PROVIDED , WILL CONTINUITY WITH CARE.
[2019-06-20] MEDS: clonazePAM 0.5 MG TABLET PO PRN (19:41)
--- NOTE | 2019-06-20 19:43 | NUR ---
RN NOTES : PT. NOTED VERY ANXIOUS ,RESTLESS SCREAMING YELLING, UNCOOPERTIVE , NOT FOLLOWING ANY DIRECTIONS, KLONOPIN 0.25 MG PO PRN GIVEN, WILL CONTINUE TO MONITOR.
[2019-06-20 20:43] VITALS: BP 112/69
[2019-06-20] MEDS: Z GUARD REMEDY 2 OZ OINT TP PRN (21:34)
[2019-06-20] MEDS: TRAZODONE 50 MG TABLET PO SCH (22:08)
[2019-06-20] MEDS: MIRTAZAPINE 15 MG TABLET PO SCH (22:08)
[2019-06-21] MEDS: DIVALPROEX SODIUM 500 MG TABLET.DR PO SCH ×3 (04:09→20:35)
[2019-06-21] MEDS: Z GUARD REMEDY 2 OZ OINT TP PRN (05:17)
[2019-06-21 08:00] VITALS: BP 114/72
[2019-06-21] MEDS: LACOSAMIDE 50 MG TABLET PO SCH ×2 (08:27→20:35)
[2019-06-21] MEDS: PANTOPRAZOLE 40 MG TABLET.DR PO SCH (08:27)
[2019-06-21] MEDS: OLANZAPINE 2.5 MG TABLET PO SCH ×2 (08:27→16:31)
[2019-06-21] MEDS: Z GUARD REMEDY 2 OZ OINT TP SCH (08:30)
[2019-06-21] MEDS: ACETAMINOPHEN 325 MG TABLET PO PRN (09:19)
[2019-06-21] MEDS: CLOTRIMAZOLE 1% 15 GM TUBE TP SCH ×2 (09:43→16:32)
[2019-06-21 16:00] VITALS: BP 106/62
[2019-06-21] MEDS: ENSURE ENLIVE CHOC 237 ML CAN PO SCH (16:32)
[2019-06-21 20:16] VITALS: BP 127/71
[2019-06-21] MEDS: TRAZODONE 50 MG TABLET PO SCH (21:01)
[2019-06-21] MEDS: MIRTAZAPINE 15 MG TABLET PO SCH (21:01)
[2019-06-22] MEDS: DIVALPROEX SODIUM 500 MG TABLET.DR PO SCH ×3 (05:01→20:25)
[2019-06-22 08:00] VITALS: BP 124/72
[2019-06-22] MEDS: LACOSAMIDE 50 MG TABLET PO SCH ×2 (09:11→20:26)
[2019-06-22] MEDS: OLANZAPINE 2.5 MG TABLET PO SCH ×2 (09:11→16:40)
[2019-06-22] MEDS: PANTOPRAZOLE 40 MG TABLET.DR PO SCH (09:11)
[2019-06-22] MEDS: CLOTRIMAZOLE 1% 15 GM TUBE TP SCH ×2 (09:12→17:04)
[2019-06-22] MEDS: Z GUARD REMEDY 2 OZ OINT TP SCH (09:12)
--- NOTE | 2019-06-22 10:09 | NUR ---
WOUND CARE FOLLOW UP PATIENT SEEN AND SKIN ASSESSMENT DONE. RASHES AND EXCORIATION (IASD) MUCH IMPROVED WITH CURRENT TREATMENT PLAN. RECOMMEND CONTINUE CURRENT TREATMENT PLAN. ALL DISCUSSED WITH NURSING AT THE BEDSIDE. WOUND CARE WILL CONTINUE TO MONITOR.
[2019-06-22 16:00] VITALS: BP 102/73
[2019-06-22] MEDS: ENSURE ENLIVE CHOC 237 ML CAN PO SCH (16:41)
[2019-06-22 20:15] VITALS: BP 112/65
[2019-06-22] MEDS: TRAZODONE 50 MG TABLET PO SCH (21:01)
[2019-06-22] MEDS: MIRTAZAPINE 15 MG TABLET PO SCH (21:02)
[2019-06-23] MEDS: DIVALPROEX SODIUM 500 MG TABLET.DR PO SCH ×3 (04:21→20:43)
[2019-06-23 08:00] VITALS: BP 129/84
[2019-06-23] MEDS: LACOSAMIDE 50 MG TABLET PO SCH ×2 (08:18→20:43)
[2019-06-23] MEDS: PANTOPRAZOLE 40 MG TABLET.DR PO SCH (08:18)
[2019-06-23] MEDS: OLANZAPINE 2.5 MG TABLET PO SCH ×2 (08:18→17:05)
[2019-06-23] MEDS: CLOTRIMAZOLE 1% 15 GM TUBE TP SCH ×2 (08:18→17:54)
[2019-06-23] MEDS: Z GUARD REMEDY 2 OZ OINT TP SCH (08:18)
[2019-06-23] MEDS: clonazePAM 0.5 MG TABLET PO PRN (08:18)
--- NOTE | 2019-06-23 08:29 | NUR ---
Assisted Living Contact: PIPPA faxed a physicians report to [facility] with attn to Pierce to the fax number: [phone].
--- NOTE | 2019-06-23 08:44 | NUR ---
PRN KLONOPIN GIVEN FOR RESTLESSNESS
--- NOTE | 2019-06-23 09:21 | NUR ---
DPOA Contact: Pts son, Alfreda ([phone]), called the SW and inquired about the visiting hours for the weekdays. SW informed of the hours and then took the opportunity to speak to him about the pts discharge plan as well. PIPPA stated that the MD who saw the pt yesterday, Dr Rush, determined that the pt is ready for discharge. Pts son became upset and stated that he does not want this MD to see the pt anymore because per Dr Owens the pt still needs more time and the MDs ordered a CT scan and are still waiting for the results. PIPPA stated that she will speak to both Dr Owens as well as Dr Dsouza and then will call him back with more information.
--- NOTE | 2019-06-23 09:28 | NUR ---
Assisted Living Contact: PIPPA called Cici ([phone]) from [facility] and informed her that the pt is ready to be assessed today and the Physicians Report was faxed over. Cici stated that she will arrive today to assess the pt.
--- NOTE | 2019-06-23 09:55 | NUR ---
SNF Referral: PIPPA faxed a referral to [facility] with attn to Suha to the fax number: [phone].
--- NOTE | 2019-06-23 11:06 | NUR ---
DPOA Contact: Pts son, Alfreda ([phone]), called the SW and stated that he heard from [facility] and was informed that they are going to come assess the pt today and that they were told that the pt was going to be discharged soon. SW stated that she spoke to Dr Dsouza who stated that he was the one who told Dr Rush that the pt needs to be discharged soon. Pts son stated that he would like to speak to Dr Owens who was a alliances consultant on this case and the SW stated that she would relay the message and then call him back.
--- NOTE | 2019-06-23 11:06 | NUR ---
SNF Contact: Suha ([phone]) from [facility] contacted the SW and stated that the pt was accepted to their facility.
--- NOTE | 2019-06-23 12:05 | NUR ---
Contact with Consulting MD: SW spoke to Dr Owens who was consulting on this case who stated that he offered his insights and will not make a decision regarding the pts discharge. SW expressed that she understood and stated that she will relay that information to the pts son.
--- NOTE | 2019-06-23 12:06 | NUR ---
DPOA Contact: PIPPA called the pts son, Alfreda ([phone]), and informed him that Dr Owens will not intervene in terms of the pts discharge and agrees with the care that the pt has received. Pts son stated that he would then like to speak to Dr Dsouza, the pts attending psychiatrist, regarding the pts discharge. He stated that he has one request and that would be to not send the pt back to [facility]. PIPPA stated that she would send a message to the MD regarding his request to speak to the MD regarding the discharge.
--- NOTE | 2019-06-23 12:07 | NUR ---
Facility Contact: PIPPA received a call from Volodymyr from [place] [facility] and he stated that he would like more information regarding the pt. PIPPA stated that she will fax over the physicians report as well as some updated notes.
--- NOTE | 2019-06-23 12:09 | NUR ---
Facility Contact: PIPPA faxed the physicians report and updated notes to Volodymyr at [place] [facility] to the fax number: [phone].
[2019-06-23 16:00] VITALS: BP 110/71
--- NOTE | 2019-06-23 16:13 | NUR ---
DPOA Contact: PIPPA called the pts son, Alfreda ([phone]), and informed him that the pt was accepted to [facility] and that if the pt does not get accepted to a memory care unit by tomorrow this is an alternative option for him. SW explained the criteria for an inpatient admission and explained when the MDs think it is an appropriate time for a pt to be discharged. Pt also explained that the insurance can come back and deny the stay. SW explained that if the pt goes to a SNF she has more time to improve before being admitted to a custodial facility. Pts son stated that he would like to speak to Dr. Dsouza and then he will make a decision.
[2019-06-23] MEDS: ENSURE ENLIVE CHOC 237 ML CAN PO SCH (17:55)
[2019-06-23 20:32] VITALS: BP 121/78
[2019-06-23] MEDS: MIRTAZAPINE 15 MG TABLET PO SCH (22:02)
[2019-06-23] MEDS: TRAZODONE 50 MG TABLET PO SCH (22:02)
[2019-06-24] MEDS: DIVALPROEX SODIUM 500 MG TABLET.DR PO SCH ×3 (05:08→21:14)
[2019-06-24 06:20] VITALS: BP 122/74
[2019-06-24 08:00] VITALS: BP 121/62
--- NOTE | 2019-06-24 08:15 | NUR ---
Assisted Living Contact: PIPPA called Cici ([phone]) from [facility] and inquired about whether or not the pt was accepted to their facility. She stated that she will have her DON call the family first thing when she comes in and then the SW will receive a call back.
[2019-06-24] MEDS: OLANZAPINE 2.5 MG TABLET PO SCH ×2 (08:49→17:09)
[2019-06-24] MEDS: PANTOPRAZOLE 40 MG TABLET.DR PO SCH (08:49)
[2019-06-24] MEDS: LACOSAMIDE 50 MG TABLET PO SCH ×2 (08:49→21:14)
[2019-06-24] MEDS: Z GUARD REMEDY 2 OZ OINT TP SCH (08:50)
[2019-06-24] MEDS: CLOTRIMAZOLE 1% 15 GM TUBE TP SCH ×2 (08:50→17:08)
--- NOTE | 2019-06-24 11:34 | NUR ---
DPOA Contact: Pts son, Alfreda ([phone]), called the SW and stated that he was informed by Dr Dsouza that the recommendation is for the pt to attend a group home facility. Pts son stated that he does not want his mom to be discharged to [facility] due to their low ratings. SW asked which facilities he would like the pt to be referred to and he stated the following three: [facility].
--- NOTE | 2019-06-24 11:37 | NUR ---
SNF Referrals: SW faxed a referral to the following three facilities listed below per DPOA request: [facility] with attn to Magui to the fax number: [phone] [facility] with attn to Admissions to the fax number: [phone] [facility] with attn to Admissions to the fax number: [phone].
[2019-06-24 16:00] VITALS: BP 127/72
[2019-06-24] MEDS: ENSURE ENLIVE CHOC 237 ML CAN PO SCH (17:25)
[2019-06-24] MEDS: hydrOXYzine PAMOATE 25 MG CAPSULE PO PRN (18:38)
--- NOTE | 2019-06-24 18:39 | NUR ---
PRN VISTARIL GIVEN FOR ANXIETY
[2019-06-24 20:30] VITALS: BP 120/95
[2019-06-24] MEDS: TRAZODONE 50 MG TABLET PO SCH (21:14)
[2019-06-24] MEDS: MIRTAZAPINE 15 MG TABLET PO SCH (21:14)
--- NOTE | 2019-06-25 01:09 | NUR ---
RN NOTE: MED WITH RESTORIL 7.5 MG FOR INSOMNIA.
[2019-06-25] MEDS: DIVALPROEX SODIUM 500 MG TABLET.DR PO SCH ×3 (04:42→21:09)
[2019-06-25 08:00] VITALS: BP 98/60
[2019-06-25] MEDS: LACOSAMIDE 50 MG TABLET PO SCH ×2 (09:26→21:09)
[2019-06-25] MEDS: OLANZAPINE 2.5 MG TABLET PO SCH ×2 (09:26→18:00)
[2019-06-25] MEDS: PANTOPRAZOLE 40 MG TABLET.DR PO SCH (09:27)
[2019-06-25] MEDS: Z GUARD REMEDY 2 OZ OINT TP SCH (09:42)
[2019-06-25] MEDS: CLOTRIMAZOLE 1% 15 GM TUBE TP SCH ×2 (09:42→17:58)
[2019-06-25] MEDS: hydrOXYzine PAMOATE 25 MG CAPSULE PO PRN (12:56)
--- NOTE | 2019-06-25 12:56 | NUR ---
GIVEN VISTARIL 25 MG PO FOR NERVOUSNESS.
[2019-06-25 16:00] VITALS: BP 100/65
--- NOTE | 2019-06-25 16:33 | NUR ---
VERY RETICENT TO TAKE MEDS,BUT THEN FINALLY DOES.
[2019-06-25] MEDS: ENSURE ENLIVE CHOC 237 ML CAN PO SCH (18:28)
[2019-06-25] MEDS: MIRTAZAPINE 15 MG TABLET PO SCH (21:09)
[2019-06-25] MEDS: TRAZODONE 50 MG TABLET PO SCH (21:09)
[2019-06-26 00:37] VITALS: BP 100/65
[2019-06-26 00:38] VITALS: BP 105/58
[2019-06-26] MEDS: TEMAZEPAM 7.5 MG CAPSULE PO PRN (01:09)
[2019-06-26] MEDS: DIVALPROEX SODIUM 500 MG TABLET.DR PO SCH ×3 (04:28→21:53)
[2019-06-26 08:00] VITALS: BP 138/89
[2019-06-26] MEDS: PANTOPRAZOLE 40 MG TABLET.DR PO SCH (08:27)
[2019-06-26] MEDS: OLANZAPINE 2.5 MG TABLET PO SCH ×2 (08:27→16:32)
[2019-06-26] MEDS: LACOSAMIDE 50 MG TABLET PO SCH ×2 (08:27→21:53)
[2019-06-26] MEDS: CLOTRIMAZOLE 1% 15 GM TUBE TP SCH ×2 (08:34→16:34)
[2019-06-26] MEDS: Z GUARD REMEDY 2 OZ OINT TP SCH (08:35)
[2019-06-26 16:00] VITALS: BP 102/62
[2019-06-26] MEDS: ENSURE ENLIVE CHOC 237 ML CAN PO SCH (17:00)
[2019-06-26 21:19] VITALS: BP 96/62
[2019-06-26] MEDS: TRAZODONE 50 MG TABLET PO SCH (23:00)
[2019-06-26] MEDS: MIRTAZAPINE 15 MG TABLET PO SCH (23:00)
[2019-06-27] MEDS: TEMAZEPAM 7.5 MG CAPSULE PO PRN (02:24)
--- NOTE | 2019-06-27 02:24 | NUR ---
PRN RESTORIL GIVEN PATIENT IS UNABLE TO SLEEP, ANXIOUS, TALKING TO HERSELF VERY LOUD, RESTLESS. PRN RESTORIL 7.5 MG PO 1 CAP GIVEN. WILL REASSESS FOR EFFECTIVENESS.
[2019-06-27] MEDS: DIVALPROEX SODIUM 500 MG TABLET.DR PO SCH ×3 (05:14→21:01)
[2019-06-27 08:00] VITALS: BP 125/78
[2019-06-27] MEDS: PANTOPRAZOLE 40 MG TABLET.DR PO SCH (08:12)
[2019-06-27] MEDS: LACOSAMIDE 50 MG TABLET PO SCH ×2 (08:56→21:01)
[2019-06-27] MEDS: OLANZAPINE 2.5 MG TABLET PO SCH ×2 (08:56→16:12)
--- NOTE | 2019-06-27 08:59 | NUR ---
SNF Contact: SW received a call from Nalini ([phone]) from [facility] who stated that there is no bed availability at this time.
--- NOTE | 2019-06-27 09:04 | NUR ---
SNF Contact: SW called [facility] and spoke to the Admissions Department who stated that there are no beds available at this time.
--- NOTE | 2019-06-27 09:07 | NUR ---
SNF Contact: SW called [facility] and spoke to Caterina from Admissions who stated that the pt will not be accepted due to her psychosis.
[2019-06-27] MEDS: Z GUARD REMEDY 2 OZ OINT TP SCH (09:16)
[2019-06-27] MEDS: CLOTRIMAZOLE 1% 15 GM TUBE TP SCH ×2 (09:17→16:10)
--- NOTE | 2019-06-27 09:41 | NUR ---
DPOA Contact: PIPPA called the pts son, Alfreda ([phone]), and informed him that the pt was not accepted to any of the three facilities that he had chosen for the SW to send referrals to on Thursday. PIPPA expressed to him that many nursing facilities do not accept pts from psych hospitalizations and informed him that there are some that do that we work closely with. Pts son refused to send a referral to [facility] and stated that these are the next three facilities that he would like the SW to refer to: [facility], [facility] and [facility]. PIPPA stated that she will send the referrals and let him know as soon as possible. PIPPA stated that [facility] did accept the pt and that the pt does have a discharge date for today.
--- NOTE | 2019-06-27 09:49 | NUR ---
SNF Referrals: SW faxed a referral to the following three facilities listed below per DPOA request: [facility] with attn to Admissions to the fax number: [phone] [facility] with attn to Callie to the fax number: [phone] [facility] with attn to Marcel to the fax number: [phone].
--- NOTE | 2019-06-27 13:20 | NUR ---
RN NOTE: CALL FROM RADIOLOGY WITH RESULTS OF CT SCAN. 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 CALLED INFORMATION TO DR. SCHAEFER. ORDER TO INFORM DR. RAZO WITH RESULTS.
--- NOTE | 2019-06-27 13:41 | NUR ---
RN NOTE: LEFT MESSAGE ON DR. SAINZ'S MESSAGE MACHINE.
--- NOTE | 2019-06-27 15:45 | NUR ---
Group Note: SW encouraged pt to participate in group on 06/27/19 at 2pm discussing discharge planning. Pt appeared to be confused and disoriented and was unable to participate group therapy. Pt presented in a gerichair in the Activities Room but was too confused to participate. SW informed her that the SW is still looking for placement for her that her son will agree to.
[2019-06-27 16:00] VITALS: BP 140/65
[2019-06-27] MEDS: ENSURE ENLIVE CHOC 237 ML CAN PO SCH (16:12)
--- NOTE | 2019-06-27 19:20 | NUR ---
GPS RN NOTE DOUGH SHEETER IS HERE TO DO CXR FOR THE PATIENT ORDERED BY .
[2019-06-27] MEDS: Z GUARD REMEDY 2 OZ OINT TP PRN (19:40)
[2019-06-27] MEDS: ACETAMINOPHEN 325 MG TABLET PO PRN (20:06)
--- NOTE | 2019-06-27 20:06 | NUR ---
PRN TYLENOL GIVEN PATIENT STATED HER BACK IS HURTING & TOUCHING HER BACK INTERMITTENTLY, PRN TYLENOL 650 MG PO PRN GIVEN. WILL CONTINUE TO MONITOR CLOSELY FOR ANY CHANGES.
[2019-06-27 20:39] VITALS: BP 134/74
--- NOTE | 2019-06-27 21:00 | NUR ---
GPS RN NOTE WAITING FOR CXR RESULTS.
[2019-06-27] MEDS: MIRTAZAPINE 15 MG TABLET PO SCH (22:10)
[2019-06-27] MEDS: TRAZODONE 50 MG TABLET PO SCH (22:11)
[2019-06-28] MEDS: hydrOXYzine PAMOATE 25 MG CAPSULE PO PRN (00:55)
--- NOTE | 2019-06-28 00:57 | NUR ---
PRN VISTARIL GIVEN PATIENT IS VERY ANXIOUS, RESTLESS, REFUSED TO STAY IN BED,BANGING ON JESUS CHAIR TRAY, YELLING LOUD. PRN VISTARIL 25 MG 1 CAP PO GIVEN. ON 1:1 SUPERVISION AT THIS TIME. WILL CONTINUE TO MONITOR CLOSELY FOR ANY CHANGES.
[2019-06-28] MEDS: DIVALPROEX SODIUM 500 MG TABLET.DR PO SCH ×3 (05:22→20:45)
[2019-06-28] MEDS: PANTOPRAZOLE 40 MG TABLET.DR PO SCH (07:59)
[2019-06-28 08:00] VITALS: BP 142/81
[2019-06-28] MEDS: OLANZAPINE 2.5 MG TABLET PO SCH ×2 (08:43→16:25)
[2019-06-28] MEDS: LACOSAMIDE 50 MG TABLET PO SCH ×2 (08:43→20:45)
[2019-06-28] MEDS: Z GUARD REMEDY 2 OZ OINT TP SCH (08:59)
[2019-06-28] MEDS: CLOTRIMAZOLE 1% 15 GM TUBE TP SCH ×2 (08:59→16:32)
--- NOTE | 2019-06-28 09:36 | NUR ---
SNF Contact: SW called [facility] and spoke to the Admissions Department who stated that the pt was denied because they do not take psych patients.
--- NOTE | 2019-06-28 12:55 | NUR ---
SNF Contact: PIPPA met with Mehran from [facility] and urged him to accept the pt. He stated that he would come assess the pt to experience the pt first hand. He came and spoke to the pt and stated that he will attempt to convince his DON and that he would like to request additional paperwork.
--- NOTE | 2019-06-28 13:16 | NUR ---
[facility] Contact: SW called the pts son, Alfreda ([phone]), and informed him that all of the facilities have denied at this point but [facility] has come to assess the pt and are considering accepting the pt. SW informed him that the placements have been denying because the pt is considered a psych patient and explained that a lot of facilities do not take psych pts. Pts son still requested that the SW send a referral to the [facility] even though the SW stated that they have a long waiting list. Pts son then expressed anger that the pts diagnosis has not changed and SW stated that diagnoses are what pts are labeled with to be treated but that will not change even if they improve because that is their condition. SW urged the pts son to focus on the placements, lower his expectations, and recognize that the placement is going to be temporary. Pts son once again asked the SW to try the other two placements.
--- NOTE | 2019-06-28 13:44 | NUR ---
SNF Contact: Mehran from [facility] called the SW and stated that the pt was accepted to their facility.
--- NOTE | 2019-06-28 15:10 | NUR ---
SNF Referral: PIPPA faxed a referral to [facility] with attn to Admissions to the fax number: [phone].
[2019-06-28 16:00] VITALS: BP 126/61
--- NOTE | 2019-06-28 16:10 | NUR ---
Group Note: SW encouraged pt to participate in group on 06/28/19 at 2pm discussing reality testing. Pt appeared to be disorganized and confused and presented in a gerichair. Pt is unable to comprehend her current state and therefore cannot speak to her reality. Pt is inappropriate for group therapy. PIPPA informed her that she was brought to the hospital to receive assistance and she will be discharged to a nursing facility approved by her son the following day.
[2019-06-28] MEDS: ENSURE ENLIVE CHOC 237 ML CAN PO SCH (16:25)
[2019-06-28 20:09] VITALS: BP 136/76
[2019-06-28] MEDS: MIRTAZAPINE 15 MG TABLET PO SCH (21:43)
[2019-06-28] MEDS: TRAZODONE 50 MG TABLET PO SCH (21:43)
[2019-06-29] MEDS: hydrOXYzine PAMOATE 25 MG CAPSULE PO PRN (02:58)
--- NOTE | 2019-06-29 03:01 | NUR ---
GPS RN NOTES: PATIENT IS ANXIOUS, RESTLESS, REFUSED TO STAY IN BED, AND BANGING ON JESUS CHAIR TRAY. PRN VISTARIL 25 MG 1 CAP PO GIVEN. PT TOLERATED MEDICATION WELL. WILL CONTINUE TO MONITOR CLOSELY FOR ANY CHANGES.
[2019-06-29] MEDS ORDERED: DIVALPROEX SODIUM 500 MG TABLET.DR PO ONE (05:34)
[2019-06-29] MEDS: DIVALPROEX SODIUM 500 MG TABLET.DR PO SCH ×2 (05:38→12:12)
--- NOTE | 2019-06-29 06:21 | NUR ---
GPS RN NOTES: NON ADMINISTERED THE 2ND ORDER OF DEPAKOTE 500MG PO. MEDICATION IS A DUPLICATE. DEPAKOTE 500 MG THAT IS DUE AT 0500AM ALREADY GIVEN.
[2019-06-29 08:00] VITALS: BP 107/54
[2019-06-29] MEDS: OLANZAPINE 2.5 MG TABLET PO SCH (08:36)
[2019-06-29] MEDS: LACOSAMIDE 50 MG TABLET PO SCH (08:36)
[2019-06-29] MEDS: PANTOPRAZOLE 40 MG TABLET.DR PO SCH (08:36)
[2019-06-29] MEDS: CLOTRIMAZOLE 1% 15 GM TUBE TP SCH (08:37)
[2019-06-29] MEDS: Z GUARD REMEDY 2 OZ OINT TP SCH (08:37)
--- NOTE | 2019-06-29 09:42 | NUR ---
SNF Contact: SW called [facility] and spoke to Aicha from the Admissions department who stated that they do not accept pts coming from a psych unit.
--- NOTE | 2019-06-29 10:52 | NUR ---
WOUND CARE FOLLOW UP: PT ADAMANTLY REFUSED SKIN ASSESSMENT. NURSING DOCUMENTATION AND PHOTOS SHOW IMPROVEMENT OF INCONTINENCE ASSOCIATED SKIN ISSUES AND RASH TO BUTTOCKS. DISCUSSED WITH NURSING STAFF. WILL SEE PRN.
--- NOTE | 2019-06-29 13:02 | NUR ---
OA Contact: PIPPA called the pts son, Alfreda ([phone]), and informed him that the pt was not accepted to [facility] and therefore the pt will be discharged to [facility]. He stated that he understands and asked about who the psychiatrist that will be following will be. PIPPA stated that it is going to be Dr. Lim.
--- NOTE | 2019-06-29 14:01 | NUR ---
Discharge Note: Pt will be discharged to [facility]F located at [address] [place] [address]; . Pt will be transported via [facility] at 1PM. Pts son/DPOA, Tariq ([phone]), was notified of the placement and he approved. Upon discharge, the pt appeared to be in a euthymic mood and presented with a distressed affect. Pt appeared to be confused about why she was in the hospital and why she was being discharged. Pt appeared to oriented x2 (place and self). Pt denied both suicidal and homicidal ideation as well as auditory and visual hallucinations. Pt will be under the care of psychiatrist, Dr. Lim, [place] [address] [place] [address]; and will be under the care of audio visual aids director, Dr. Mccarty, located at [address] [place] [address]; .
--- NOTE | 2019-06-29 16:05 | NUR ---
BOILER TECHNICIAN NOTE: PATIENT IS A 78 YEAR OLD FEMALE DISCHARGED TO [facility] SNF LOCATED AT [address] [place] [id number] . PATIENT IS IN STABLE CONDITION. VSS. NO ACUTE DISTRESS NOTED. NO COMPLAINTS. COMPLIANT WITH MEDICATION MANAGEMENT. COOPERATIVE WITH PLAN OF CARE. PSYCHIATRIC TREATMENT PLANS MET. MEDICAL TREATMENT PLANS DEFERRED FOR CONTINUAL MONITORING. DENIES SI/HI VAH AT THE TIME OF DISCHARGE. PATIENT REFUSED SKIN CHECK/ PICTURES. EDUCATED PATIENT ABOUT AFTERCARE WITH COPY PROVIDED. RETURNED PERSONAL BELONGINGS TO PATIENT. MEDICATIONS RECONCILED WITH DR SCHAEFER AND DR HALL ALONG WITH PSYCHIATRIC DISCHARGE ORDERS. DISCHARGE PAPERWORK SIGNED. FOR FOLLOW UP WITH PSYCHIATRIST DR LEONARD [id number] [facility] [address] [address] OCC[address]ATIONAL SAFETY SPECIALIST DR FERNANDES [address] [facility] [address] WITHIN [address] [facility] GPS VIA MEDICAL TRANSPORT AT 1510.
== END 2019-06-29 15:10 | DRG 885 ==
LOC: GPS 22:24
PROVIDERS: ADMIT Psychiatry & Neurology Psychiatry; ATTEND Nurse Practitioner Acute Care
DX: F33.3 Major depressive disorder, recurrent, severe with psychotic symptoms (principal); G93.41 Metabolic encephalopathy; I62.03 Nontraumatic chronic subdural hemorrhage; N39.0 Urinary tract infection, site not specified; F23 Brief psychotic disorder; F03.91 Unspecified dementia, unspecified severity, with behavioral disturbance; F13.20 Sedative, hypnotic or anxiolytic dependence, uncomplicated; F41.9 Anxiety disorder, unspecified; B96.89 Other specified bacterial agents as the cause of diseases classified elsewhere; F39 Unspecified mood [affective] disorder
CPT/HCPCS: 36415; 70450-TC; 71045-TC; 80048-TC; 80053-TC; 80061-TC; 80164-TC; 81000-TC; 82962-TC; 84443-TC; 85025-TC; 87081-TC; 87086-TC; 97110-TC; 97112-TC; 97116-TC; 97530-TC; Q0177

== ENCOUNTER 2019-07-04 12:40 | Inpatient (IN) | payer MEDICARE, BC ==
[~2019-07-04] VITALS: Ht 157.5 cm; Wt 49.9 kg
[~2019-07-04 12:40] MED LIST: CLON0.1T PO; DIVA500T54 PO; LACO50TA2 PO; LORA-258 PO; METH1ADH6 TP; PANT40TA2 PO; SULF1TAB48 PO; TEMA30CA PO
--- NOTE | 2019-07-04 13:19 | NUR ---
PT CAME TO ER BED 12 STATES, "I AM HERE BECAUSE I AM SUPPOSED TO BE ON A FLIGHT TO [facility] RIGHT NOW." AAOX2. DOES NOT UNDERSTAND WHY SHE IS IN THE EMERGENCY ROOM. DENIES SUICIDAL IDEATION AND HOMICIDAL INTENT. VSS. CONNECTED TO MONITOR. WILL CARE FOR PATIENT ACCORDINGLY. SITTER AT BEDSIDE.
--- NOTE | 2019-07-04 13:25 | NUR ---
RAIL WASHER AT BEDSIDE FOR BLOOD DRAW.
[2019-07-04 13:27] LABS: BASOPHILS % (AUTO) 0.4 % (0.0-2.0); EOSINOPHILS % (AUTO) 0.2 % (0.0-6.0); HEMATOCRIT 38 % (33-45); HEMOGLOBIN 12.2 g/dL (11.5-14.8); LYMPHOCYTES # (AUTO) 1.2 /CMM (0.8-4.8); LYMPHOCYTES % (AUTO) 10.6 % (20.0-44.0); MEAN CORPUSCULAR HGB CONC 32 g/dl (31.0-36.0); MEAN CORPUSCULAR VOLUME 93 fL (82-100); MONOCYTES # (AUTO) 1.3 /CMM (0.1-1.30); MONOCYTES % (AUTO) 11.2 % (2.0-12.0); NEUTROPHILS # (AUTO) 8.7 /CMM (1.8-8.9); NEUTROPHILS % (AUTO) 77.6 % (43.0-81.0); PLATELET COUNT (AUTO) 287 /CMM (150-450); RED BLOOD CELL COUNT(AUTO) 4.11 MIL/uL (4.0-5.2); WHITE BLOOD COUNT (AUTO) 11.2 K/uL (4.3-11.0)
[2019-07-04] MEDS ORDERED: MAG30ORA PO (13:32)
[2019-07-04] MEDS ORDERED: LIDO85CR9 TP (13:32)
[2019-07-04] MEDS ORDERED: MIRT15TA7 PO (13:32)
[2019-07-04] MEDS ORDERED: ACET-2605 PO (13:32)
[2019-07-04] MEDS ORDERED: ACET-868 PO (13:32)
[2019-07-04] MEDS ORDERED: CLOT15CR63 TP (13:32)
[2019-07-04] MEDS ORDERED: NA P133E RC (13:32)
[2019-07-04] MEDS ORDERED: DIVA-78 PO (13:32)
[2019-07-04] MEDS ORDERED: HYDR-3895 PO (13:32)
[2019-07-04] MEDS ORDERED: CLON0.5T4 PO (13:32)
[2019-07-04] MEDS ORDERED: MAGN400O6 PO (13:32)
[2019-07-04] MEDS ORDERED: OLAN2.5T3 PO (13:32)
[2019-07-04] MEDS ORDERED: TRAZ-182 PO (13:32)
--- NOTE | 2019-07-04 13:33 | NUR ---
SOFTWARE CLIENT ARCHITECT AT BEDSIDE FOR XRAY.
[2019-07-04 13:39] LABS: CALCIUM, SERUM 8.7 mg/dL (8.5-10.1); CARBON DIOXIDE 31 mmol/L (21-32); CHLORIDE 105 mmol/L (98-107); CREATININE 0.8 mg/dL (0.6-1.3); GLUCOSE 90 mg/dL (74-106); POTASSIUM 3.5 mmol/L (3.5-5.1); SODIUM SERUM 141 mmol/L (136-145); UREA NITROGEN, BLOOD 12 mg/dL (7-18)
[2019-07-04 13:44] LABS: ALANINE AMINOTRANSFERASE 11 U/L (12-78); ALBUMIN 2.1 g/dL (3.4-5.0); ALCOHOL, BLOOD < 3 mg/dL (0-0); ALKALINE PHOSPHATASE 76 U/L (46-116); ASPARTATE AMINOTRANSFERASE 17 U/L (15-37); BILIRUBIN,DIRECT 0.1 mg/dL (0.0-0.2); BILIRUBIN,TOTAL 0.4 mg/dL (0.2-1.0); TOTAL PROTEIN, SERUM 7.2 g/dL (6.4-8.2)
[2019-07-04 13:45] LABS: ACETAMINOPHEN 0 ug/ml (10-30); SALICYLATE 0.7 mg/dL (2.8-20.0)
--- NOTE | 2019-07-04 13:55 | NUR ---
URINE COLLECTED AND SENT TO THE LAB FOR TESTING.
[2019-07-04 14:01] LABS: APPEARANCE,URINE Cloudy (CLEAR); BILIRUBIN,URINE Negative (NEGATIVE); BLOOD, URINE Small Ery/uL (NEGATIVE); COLOR,URINE Yellow (YELLOW); KETONES,URINE Trace (NEGATIVE); LEUKOCYTE ESTERASE ,URINE Large (NEGATIVE); NITRITE, URINE Positive (NEGATIVE); PH,URINE 7.5 (5.0-8.0); PROTEIN,URINE 100 mg/dl (NEGATIVE); UGLUCOSE Negative (NEGATIVE); UROBILINOGEN,URINE >=8.0 EU/dL (0.2)
[2019-07-04 14:08] LABS: WBC,URINE TOO NUMEROUS TO COUN /HPF (0-3)
[2019-07-04 14:09] LABS: BACTERIA,URINE Many /HPF (None Seen)
[2019-07-04 14:10] LABS: SQUAMOUS EPITHELIAL CELL,UR Few /HPF (None Seen)
--- NOTE | 2019-07-04 14:26 | NUR ---
CALLED [facility]. UNKNOWN ETA FOR EVAL.
[2019-07-04] MEDS ORDERED: CEPHALEXIN MONOHYDRATE 500 MG CAPSULE PO ONE ×2 (15:00→15:06)
--- NOTE | 2019-07-04 17:53 | NUR ---
CALLED [facility] FOR CRISIS EVAL. ETA 1 HOUR.
--- NOTE | 2019-07-04 19:05 | NUR ---
[facility] CRISIS EVAL AT BEDSIDE.
--- NOTE | 2019-07-04 20:07 | NUR ---
REPORT GIVEN TO OLGA DUPREE.
[2019-07-04 20:17] VITALS: BP 133/54
--- NOTE | 2019-07-04 20:20 | NUR ---
GPS PROMOTIONS REPRESENTATIVE NOTES: ADMITTED 78 Y/O FEMALE. PT ADMITTED FROM [facility] TO [facility] ER TO GPS UNIT ON A 5150. PER HOLD, ACCORDING TO STAFF AT [facility] PATIENT HAS BEEN INCREASINGLY AGITATED, ANXIOUS, RESTLESS, STRIKING OUT, REFUSING CARE & REFUSING MEDICATIONS. PT. STATED," I NEED TO GO TO WORK". UPON FACE TO FACE ASSESSMENT PT IS ALERT/ ORIENTED X1, UNCOOPERATIVE, CONFUSED, FORGETFUL, STRIKING OUT, ANXIOUS, RESTLESS, DISORGANIZED & DISORIENTED, POOR HISTORIAN, AGITATED, NEEDY, AND POOR IMPULSE CONTROL. PT STATED, " I DON'T KNOW WHY I AM HERE!" ROWAN S/I AND H/I AT THIS TIME. PT WAS FROM [place] AND CAN SPEAK AND UNDERSTANDS [place]. PT UNABLE TO SIGN CONSENT FORMS DUE TO BEING CONFUSED/ANXIOUS. ENVIRONMENTAL SAFETY CHECK DONE. BED ALARM ON. BED IN LOW LOCKED POSITION. ENCOURAGE PT TO VERBALIZE FEELINGS AND CONCERNS TO STAFF. ORIENTED TO THE UNIT. CHECKED BELONGING AND CONTRABAND. SKIN ASSESSMENT DONE. PICTURES TAKEN & PLACED IN THE CHART. WOUND CONSULT ORDERED. INITIAL BLOOD SUGAR CHECKED AND DONE PROVIDE PT W/ HANDBOOK AND MED GUIDE. MIKE THAYER MADE AWARE ABOUT ADMISSION TO GPS UNIT. VITALS ARE W/ NORMAL LEVELS. NO S/S OF RESP DISTRESS NOTED. BREATHING EVEN AND UNLABORED. WILL CONTINUE TO MONITOR Q 15 MINS. FOR SAFETY & BEHAVIOR.
[2019-07-04 20:38] VITALS: BP 133/54
[2019-07-04] MEDS ORDERED: ACETAMINOPHEN 325 MG TABLET PO PRN (21:00)
[2019-07-04] MEDS ORDERED: MAGNESIUM HYDROXIDE 30 ML UDC PO PRN (21:00)
[2019-07-04] MEDS ORDERED: BLOOD SUGAR DIAGNOSTIC 1 EACH STRIP IN ONE (21:00)
[2019-07-04] MEDS ORDERED: ZOLPIDEM TARTRATE 5 MG TABLET PO PRN (21:00)
[2019-07-04] MEDS ORDERED: MAG HYDROX/AL HYDROX/SIMETH 30 ML UDC PO PRN (21:00)
[2019-07-04] MEDS ORDERED: LORAZEPAM 0.5 MG TABLET PO PRN (21:00)
--- NOTE | 2019-07-04 22:00 | NUR ---
GPS RN NOTE DR. JARAMILLO & DR HEADLEY WAS CALLED & NOTIFIED ABOUT NEW ADMISSION. PER DR. JARAMILLO MED RECON WILL BE DONE BY . ALL NEW ORDERS NOTED & CARRIED OUT. WILL CONTINUE TO MONITOR THE PATIENT FOR SAFETY & BEHAVIOR.
--- NOTE | 2019-07-04 22:58 | NUR ---
PRN AMBIEN GIVEN PATIENT IS RESTLESS, UNABLE TO SLEEP AT THIS TIME. PRN AMBIEN 5 MG 1 TAB PO GIVEN. WILL REASSESS FOR EFFECTIVENESS.
--- NOTE | 2019-07-04 23:58 | NUR ---
GPS RN NOTE PATIENT IS STILL UNABLE TO SLEEP AFTER GIVING AMBIEN ORDERED. CONTINUING TO MONITOR FOR SAFETY & BEHAVIOR.
--- NOTE | 2019-07-05 00:30 | NUR ---
PRN ATIVAN GIVEN PATIENT IS VERY RESTLESS, ANXIOUS, KEEP BANGING JESUS CHAIR TRAY, YELLING AT STAFF, PRN ATIVAN 1 MG PO GIVEN ORDERED BY MD. WILL CONTINUE TO MONITOR
[2019-07-05] MEDS: Z GUARD REMEDY 2 OZ OINT TP PRN (02:28)
--- NOTE | 2019-07-05 06:19 | NUR ---
GPS RN NOTE PATIENT REFUSED AM LABS, EASILY AGITATED, RESTLESS & DESPITE OF RISKS & BENEFITS EXPLANATIONS, PT. CONTINUED TO REFUSE AM LABS.
--- NOTE | 2019-07-05 06:46 | NUR ---
DR. JARAMILLO MADE AWARE AGAIN FOR MED RECON OF NEW ADMIT PATIENT.
[2019-07-05 08:00] VITALS: BP 101/66
[2019-07-05] MEDS ORDERED: NA PHOS,M-B/NA PHOS,DI-BA 1 EA ENEMA RC PRN (08:00)
[2019-07-05] MEDS ORDERED: CLONIDINE HCL 0.1 MG TABLET PO PRN (08:00)
[2019-07-05] MEDS: LACOSAMIDE 50 MG TABLET PO SCH ×2 (08:49→21:00)
[2019-07-05] MEDS: CEPHALEXIN MONOHYDRATE 250 MG CAPSULE PO SCH ×3 (08:49→21:00)
[2019-07-05] MEDS: CLOTRIMAZOLE 1% CREAM 24 GM TUBE TP SCH ×2 (08:52→23:11)
[2019-07-05] MEDS: Z GUARD REMEDY 2 OZ OINT TP SCH (08:52)
--- NOTE | 2019-07-05 11:12 | NUR ---
WOUND CARE CONSULT: PT PRESENTS WITH SACRAL SCARRING AND RASH/REDNESS TO LOWER BUTTOCKS, PRESENT ON ADMISSION. RECOMMENDATIONS MADE FOR SKIN PROTECTION AND SKIN CARE. DISCUSSED WITH NURSING STAFF. WILL SEE PRN. MUNIZ IN AGREEMENT WITH PLAN OF CARE. Addendum: 07/05/19 at 1113 by CAIT MORFIN WNDNU Amended: Links added.
--- NOTE | 2019-07-05 12:09 | NUR ---
Psychosocial Note: I, Leighpatrick Bowen COMPUTER LAB AIDE, attest to the patients previous psychosocial information dated on 06/08/19. Update On Events leading to Admission and Discharge Plan: Pt has returned to the geropsych unit of the hospital within a week of her previous discharge date (06/29/19). Per hold, psychiatric evaluation of this 78 year old female was requested from [facility] due to increased confusion and agitation. During face to face assessment, pt is confused, disorganized and disoriented. Pt stated, I need to go to work. According to the staff at the facility, pt has been increasingly agitated, anxious, restless and striking out, refusing care and refusing medications. History of Major Depression Recurrent Type, severe with psychotic features. Upon social service director evaluation, the pt appeared to be oriented x1 (self). Pt appears to be in a depressed mood and presents with a labile and distressed affect. Pt is unaware of the time, where she is and why she is here. Pt does not understand that she is in the hospital. Pt presented in a gerichair in the activities room due to aggressive behavior. Pts insight and judgment appear to be impaired and the pts impulse control is poor. Pts son and DPOA, Tariq ([phone]), will be involved in discharge planning once the MD gets a consultation from the neurologist.
[2019-07-05] MEDS: DIVALPROEX SODIUM 500 MG TABLET.DR PO SCH ×2 (13:03→21:00)
--- NOTE | 2019-07-05 13:10 | NUR ---
Family Contact with MD: Pts , Dr. Owens, called the pt's son, Tariq ([phone]), with the SW present. Pts informed the son about medication changes and stated that once he hears from the neurologist who did a consult from the previous admission that discharge planning can begin.
[2019-07-05 16:00] VITALS: BP 138/69
[2019-07-05 20:35] VITALS: BP 121/73
[2019-07-05] MEDS: SULFAMETH/TRIMETH 800/160 MG 1 UDTAB TABLET PO SCH (21:30)
[2019-07-05] MEDS: QUETIAPINE FUMARATE 100 MG TABLET PO SCH (22:00)
--- NOTE | 2019-07-05 22:41 | NUR ---
GPS RN NOTE: PATIENT REFUSED HS MEDICATIONS, EXPLAINED THE RISK AND BENEFITS X 3 ATTEMPTS, PATIENT STILL REFUSED AND AGITATEDLY SAID NO, WILL CONTINUE TO MONITOR Q15 MINS FOR SAFETY
[2019-07-06] MEDS: DIVALPROEX SODIUM 500 MG TABLET.DR PO SCH ×3 (06:07→21:26)
[2019-07-06] MEDS: PANTOPRAZOLE 40 MG TABLET.DR PO SCH (07:30)
[2019-07-06 08:00] VITALS: BP 121/59
[2019-07-06] MEDS: SULFAMETH/TRIMETH 800/160 MG 1 UDTAB TABLET PO SCH (10:06)
[2019-07-06] MEDS: LACOSAMIDE 50 MG TABLET PO SCH ×2 (10:06→21:26)
[2019-07-06] MEDS: CEPHALEXIN MONOHYDRATE 250 MG CAPSULE PO SCH ×2 (10:06→13:08)
[2019-07-06] MEDS: Z GUARD REMEDY 2 OZ OINT TP SCH (10:09)
[2019-07-06] MEDS: CLOTRIMAZOLE 1% CREAM 24 GM TUBE TP SCH ×2 (10:38→21:33)
[2019-07-06 16:00] VITALS: BP 143/51
[2019-07-06 20:00] VITALS: BP 96/54
[2019-07-06 20:35] VITALS: BP_SYST 104; BP_SYST 96; BP_DIAS 54; BP_DIAS 58
[2019-07-06] MEDS: AMOX/CLAVULANATE 875 MG TABLET PO SCH (21:26)
[2019-07-06] MEDS: Z GUARD REMEDY 2 OZ OINT TP PRN (21:33)
[2019-07-06] MEDS: QUETIAPINE FUMARATE 100 MG TABLET PO SCH (22:29)
[2019-07-07] MEDS: DIVALPROEX SODIUM 500 MG TABLET.DR PO SCH ×3 (05:08→21:40)
[2019-07-07 08:00] VITALS: BP 142/66
[2019-07-07] MEDS: PANTOPRAZOLE 40 MG TABLET.DR PO SCH (08:18)
[2019-07-07] MEDS: Z GUARD REMEDY 2 OZ OINT TP SCH (09:00)
[2019-07-07] MEDS: AMOX/CLAVULANATE 875 MG TABLET PO SCH ×2 (09:00→21:40)
[2019-07-07] MEDS: LACOSAMIDE 50 MG TABLET PO SCH ×2 (09:00→21:40)
[2019-07-07] MEDS: CLOTRIMAZOLE 1% CREAM 24 GM TUBE TP SCH ×2 (09:00→21:40)
--- NOTE | 2019-07-07 09:36 | NUR ---
PT REFUSED AM MEDICATIONS, INCLUDING ANTIBIOTIC DESPITE MEDICATION EXPLANATION AND MULTIPLE ATTEMPTS AT ADMINISTRATION.
--- NOTE | 2019-07-07 11:41 | NUR ---
DPOA Contact: PIPPA called the pts son, Tariq ([phone]), and informed him that the pt has dementia which is not a condition where a pt can return to her baseline. SW also informed him that the pt has a UTI and that was causing her aggressive behavior. SW stated that the pt is on antibiotics and that her projected discharge is next week. Pts son stated that he will view [facility] and [facility] this weekend and the SW will call on Thursday to send referrals.
--- NOTE | 2019-07-07 15:36 | NUR ---
Group Note: SW encouraged pt to participate in group on 07/07/19 at 2pm discussing discharge planning. Pt refused to attend and stated that she preferred to remain in her room. SW stated that she is currently working with the pts son to send the pt to a facility that is better equipped to help her and she stated that she trusts her son and his judgment. Pt stated that she does not want to remain in the hospital too long.
[2019-07-07 16:00] VITALS: BP 100/52
[2019-07-07 20:00] VITALS: BP 105/67
[2019-07-07] MEDS: QUETIAPINE FUMARATE 100 MG TABLET PO SCH (21:40)
[2019-07-08] MEDS: DIVALPROEX SODIUM 500 MG TABLET.DR PO SCH ×3 (06:01→20:44)
[2019-07-08 08:04] VITALS: BP 103/62
[2019-07-08] MEDS: PANTOPRAZOLE 40 MG TABLET.DR PO SCH (08:18)
[2019-07-08] MEDS: CLOTRIMAZOLE 1% CREAM 24 GM TUBE TP SCH ×2 (08:44→21:07)
[2019-07-08] MEDS: Z GUARD REMEDY 2 OZ OINT TP SCH (08:44)
[2019-07-08] MEDS: LACOSAMIDE 50 MG TABLET PO SCH ×2 (08:46→20:44)
[2019-07-08] MEDS: AMOX/CLAVULANATE 875 MG TABLET PO SCH ×2 (08:46→20:44)
[2019-07-08 16:02] VITALS: BP 116/58
[2019-07-08] MEDS: ENSURE ENLIVE CHOC 237 ML CAN PO SCH (17:00)
[2019-07-08 20:30] VITALS: BP 112/52
[2019-07-08] MEDS: QUETIAPINE FUMARATE 100 MG TABLET PO SCH (21:06)
[2019-07-09] MEDS: DIVALPROEX SODIUM 500 MG TABLET.DR PO SCH ×3 (05:53→20:58)
[2019-07-09 08:00] VITALS: BP 112/66
[2019-07-09] MEDS: AMOX/CLAVULANATE 875 MG TABLET PO SCH ×2 (08:36→20:58)
[2019-07-09] MEDS: PANTOPRAZOLE 40 MG TABLET.DR PO SCH (08:36)
[2019-07-09] MEDS: LACOSAMIDE 50 MG TABLET PO SCH ×2 (08:36→20:58)
[2019-07-09] MEDS: CLOTRIMAZOLE 1% CREAM 24 GM TUBE TP SCH ×2 (08:58→20:59)
[2019-07-09] MEDS: Z GUARD REMEDY 2 OZ OINT TP SCH (08:58)
[2019-07-09] MEDS: ENSURE ENLIVE CHOC 237 ML CAN PO SCH ×3 (09:00→17:26)
[2019-07-09] MEDS ORDERED: DIVALPROEX SODIUM 125 MG CAP.SPRINK PO SCH (14:00)
[2019-07-09 16:00] VITALS: BP 138/78
--- NOTE | 2019-07-09 17:54 | NUR ---
GPS RN-NOTES SKIN LIFTER BACON JOSELIN FOUNTAIN SEEN THE PATIENT WITH VERBAL ORDER TO DO STRAIGHT CATHETER FOR UA COLLECTION. NOTED AND CARRIED OUT.
--- NOTE | 2019-07-09 18:50 | NUR ---
GPS/RN- NOTES WILL ENDORSED TO INCOMING NURSE FOR URINE COLLECTION TO F/U.
[2019-07-09 20:03] VITALS: BP 104/63
[2019-07-09] MEDS: QUETIAPINE FUMARATE 100 MG TABLET PO SCH (21:00)
[2019-07-10] MEDS: DIVALPROEX SODIUM 500 MG TABLET.DR PO SCH ×5 (05:00→20:44)
--- NOTE | 2019-07-10 06:09 | NUR ---
GPS RN NOTES PATIENT REFUSED SCHEDULED DEPAKOTE AFTER OPENING MEDICATION. EXPLAINED IMPORTANCE OF MEDICATION; HOWEVER, PATIENT STATED "NO, I DON'T WANT ANY MEDICINE". MEDICATION WASTED IN DESIGNATED BIN.
[2019-07-10] MEDS: PANTOPRAZOLE 40 MG TABLET.DR PO SCH (07:30)
[2019-07-10 08:00] VITALS: BP 109/56
[2019-07-10] MEDS: ENSURE ENLIVE CHOC 237 ML CAN PO SCH ×3 (08:41→17:00)
[2019-07-10] MEDS: LACOSAMIDE 50 MG TABLET PO SCH ×2 (08:43→20:44)
[2019-07-10] MEDS: AMOX/CLAVULANATE 875 MG TABLET PO SCH ×2 (08:43→20:44)
[2019-07-10] MEDS: Z GUARD REMEDY 2 OZ OINT TP SCH (10:00)
[2019-07-10] MEDS: CLOTRIMAZOLE 1% CREAM 24 GM TUBE TP SCH ×2 (10:02→21:36)
[2019-07-10 16:00] VITALS: BP 127/67
[2019-07-10 20:35] VITALS: BP 126/57
[2019-07-10] MEDS: QUETIAPINE FUMARATE 100 MG TABLET PO SCH (21:36)
[2019-07-11] MEDS: DIVALPROEX SODIUM 500 MG TABLET.DR PO SCH ×3 (05:03→20:42)
[2019-07-11 08:00] VITALS: BP 117/72
[2019-07-11] MEDS: PANTOPRAZOLE 40 MG TABLET.DR PO SCH (08:36)
[2019-07-11] MEDS: AMOX/CLAVULANATE 875 MG TABLET PO SCH ×2 (08:45→20:42)
[2019-07-11] MEDS: LACOSAMIDE 50 MG TABLET PO SCH ×2 (08:45→20:42)
[2019-07-11] MEDS: ENSURE ENLIVE CHOC 237 ML CAN PO SCH ×3 (08:46→16:50)
--- NOTE | 2019-07-11 09:04 | NUR ---
DPOA Contact: PIPPA called the pts son, Tariq ([phone]), and left a voicemail stating that she would like a call back to discuss the SNFs that he had stated he would visit over the weekend.
[2019-07-11] MEDS: Z GUARD REMEDY 2 OZ OINT TP SCH (09:35)
[2019-07-11] MEDS: CLOTRIMAZOLE 1% CREAM 24 GM TUBE TP SCH ×2 (09:35→21:43)
--- NOTE | 2019-07-11 11:08 | NUR ---
DPOA Contact: Pts son, Tariq ([phone]), called the SW and stated that he did have a conversation with the MD on Thursday and then he spoke to his family members. He stated that the MD feels that the pt has shown great improvement and the son himself agreed to that. Pts son stated that he would like the SW to refer the pt to [facility]. He stated that he has already spoken to the facility and they are willing to come out and evaluate the pt.
--- NOTE | 2019-07-11 11:14 | NUR ---
Assisted Living Referral: PIPPA faxed a referral to Ambar at [facility] with attn to Katherine to the fax number: [phone].
--- NOTE | 2019-07-11 12:20 | NUR ---
Assisted Living Contact: Kristin ([phone]) from [facility] called the SW and stated that she received the referral that was sent and that she will be sending over a Physicians Report. She stated that she did not feel that the pt is appropriate for their facility due to her behavior but the SW stated that was caused by the UTI and that the pt has been calm and cooperative on the unit at this time.
[2019-07-11 16:00] VITALS: BP 101/68
[2019-07-11 20:15] VITALS: BP 99/60
[2019-07-11] MEDS: QUETIAPINE FUMARATE 100 MG TABLET PO SCH (21:14)
[2019-07-12] MEDS: DIVALPROEX SODIUM 500 MG TABLET.DR PO SCH ×3 (04:03→21:10)
--- NOTE | 2019-07-12 04:05 | NUR ---
RN NOTES: PT REFUSING DEPAKOTE AT THIS TIME. SHE SAID LATER. WILL COME BACK AT ANOTHER TIME.
--- NOTE | 2019-07-12 06:18 | NUR ---
RN NOTES: PT OFFERED DEPAKOTE AGAIN AND WAS PLACING IT IN FRONT OF HER MOUTH BUT PT SHOOK HER HEAD AND SAID NO. PT SAYS "WHY DO YOU KEEP BOTHERING ME?"
[2019-07-12] MEDS: PANTOPRAZOLE 40 MG TABLET.DR PO SCH (07:30)
[2019-07-12 08:00] VITALS: BP 117/69
[2019-07-12] MEDS: ENSURE ENLIVE CHOC 237 ML CAN PO SCH ×3 (08:00→17:07)
[2019-07-12] MEDS: Z GUARD REMEDY 2 OZ OINT TP SCH (09:08)
[2019-07-12] MEDS: LACOSAMIDE 50 MG TABLET PO SCH ×2 (09:10→21:10)
[2019-07-12] MEDS: AMOX/CLAVULANATE 875 MG TABLET PO SCH (09:10)
[2019-07-12] MEDS: CLOTRIMAZOLE 1% CREAM 24 GM TUBE TP SCH ×2 (09:18→21:25)
--- NOTE | 2019-07-12 10:28 | NUR ---
Assisted Living Referral: PIPPA faxed the physicians report to Gilgo at [facility] with attn to Katherine to the fax number: [phone].
--- NOTE | 2019-07-12 10:31 | NUR ---
Assisted Living Contact: PIPPA called Kristin ([phone]) from [facility] and instead spoke to Elizabeth who is the RN that would be completing the pts assessment with Kristin and Volodymyr curiel. Elizabeth stated that she does not think that it would be appropriate due to the recent medication change. PIPPA stated that the MD is not concerned and is aiming to discharge the pt this week. SW pushed for the evaluation to take place the following day and Elizabeth accepted. Addendum: 07/12/19 at 1041 by DICK DAS Nurse also requested that a blood TB test be done on the patient and the SW stated that she would inform the pts nurse.
--- NOTE | 2019-07-12 12:50 | NUR ---
Probable Cause (PC) Hearing: PIPPA called the pts son, Tariq ([phone]), and informed him that the pt will be having a PC hearing today. PIPPA then informed him that the pt will be assessed by [facility] the following day and he stated that he will be present during the evaluation as well.
--- NOTE | 2019-07-12 14:15 | NUR ---
RN-CO: Paged Dr Mccarty to obtain an order for blood tuberculosis test. Awaiting to call back.
[2019-07-12 16:00] VITALS: BP 114/72
--- NOTE | 2019-07-12 17:10 | NUR ---
RN-CO: DR WEIR CALLED BACK AND ORDERED QUANTIFERON TB GOLD PLUS FOR A REQUIREMENT NEED ON PT'S PLACEMENT.
[2019-07-12 19:45] VITALS: BP 104/58
[2019-07-12] MEDS: QUETIAPINE FUMARATE 100 MG TABLET PO SCH (21:10)
[2019-07-13] MEDS: DIVALPROEX SODIUM 500 MG TABLET.DR PO SCH ×4 (05:37→21:22)
--- NOTE | 2019-07-13 06:35 | NUR ---
copy manager notes pt remain sleeping in bed without any acute distress noted. all due meds given and all needs met. no signs of any agitation noted joe the night except confusion but compliance with her medication as long you mentioned her son .needs encouragement and re-orientation . kept her warm and comfortable at all times. will endorse to am nurse for continuity of care.
[2019-07-13 08:00] VITALS: BP 138/85
[2019-07-13] MEDS: LACOSAMIDE 50 MG TABLET PO SCH ×2 (09:46→21:21)
[2019-07-13] MEDS: PANTOPRAZOLE 40 MG TABLET.DR PO SCH (09:46)
[2019-07-13] MEDS: CLOTRIMAZOLE 1% CREAM 24 GM TUBE TP SCH ×2 (09:51→21:22)
[2019-07-13] MEDS: Z GUARD REMEDY 2 OZ OINT TP SCH (09:53)
[2019-07-13] MEDS: ENSURE ENLIVE CHOC 237 ML CAN PO SCH ×3 (10:02→17:44)
--- NOTE | 2019-07-13 14:00 | NUR ---
refused 1300 depakote.son here now to visit.
--- NOTE | 2019-07-13 15:15 | NUR ---
Assisted Living Evaluation: PIPPA met with the pts son, Tariq ([phone]), before the evaluation took place and spoke to him regarding the options that the pt has in case the assessment does not result in the pt being admitted. SW was present during the assessment and answered the questions of the nurses. SW helped encourage the pt to demonstrate her ability to ambulate as well. At the conclusion of the assessment, it appeared that the pt would be accepted. Elizabeth RN, stated that she would like to request the blood test results and needs the prescription form redone. PIPPA stated that she would provide all of their requests.
--- NOTE | 2019-07-13 15:25 | NUR ---
Group Note: SW encouraged pt to participate in group on 07/13/19 at 2pm discussing suicidal urges and ideation. Pt refused to participate because her son was currently visiting and came early to prepare for the assessment that was about to take place for the pt and a placement option. SW informed the pt that her goal was to work on her level of functioning but the pt stated that she participated in grooming but would like to visit with her son at this time.
--- NOTE | 2019-07-13 15:35 | NUR ---
evaluators here from [place] to see pt.ambulated in [place].
[2019-07-13 16:00] VITALS: BP 117/62
[2019-07-13 20:00] VITALS: BP 110/62
--- NOTE | 2019-07-13 20:00 | NUR ---
RECEIVED PATIENT RESTING IN HER BED, AWAKE, NO ACUTE DISTRESS NOTED. PT REMAINS CONFUSED, DISORIENTED, DISORGANIZED, RESTLESS, ANXIOUS, COOPERATIVE, MED COMPLIANT, EASILY IRRITATED, REORIENTATION PROVIDED. ENVIRONMENTAL SAFETY CHECKS.ENCOURAGED FOR VERBALIZED ANY CONCERNED, WILL CONTINUE TO MONITOR [id number] FOR SAFETY AND BEHAVIOR.
[2019-07-13] MEDS: QUETIAPINE FUMARATE 100 MG TABLET PO SCH (21:22)
[2019-07-14] MEDS: DIVALPROEX SODIUM 500 MG TABLET.DR PO SCH ×3 (05:20→21:39)
--- NOTE | 2019-07-14 07:23 | NUR ---
RN NOTES : PT. RESETING IN HER BED, NO ACUTE DISTRESS NOTED , DENIED ANY DISCOMFORT AT THIS TIME , IN DURING SHIFT NO BEHAVIOR PROBLEMS NOTED , ENDORSE TO DAY NURSE FOR CONTINUIYT OF CARE.
[2019-07-14 08:00] VITALS: BP 99/69
[2019-07-14] MEDS: ENSURE ENLIVE CHOC 237 ML CAN PO SCH ×3 (09:12→17:14)
[2019-07-14] MEDS: PANTOPRAZOLE 40 MG TABLET.DR PO SCH (09:12)
[2019-07-14] MEDS: LACOSAMIDE 50 MG TABLET PO SCH ×2 (09:12→21:39)
[2019-07-14] MEDS: CLOTRIMAZOLE 1% CREAM 24 GM TUBE TP SCH ×2 (09:12→21:40)
[2019-07-14] MEDS: Z GUARD REMEDY 2 OZ OINT TP SCH (09:13)
--- NOTE | 2019-07-14 11:19 | NUR ---
Assisted Living Referral: PIPPA re-faxed the physicians report with the corrections requested by Elizabeth DUPREE to Ambar at [facility] with attn to Katherine to the fax number: [phone].
--- NOTE | 2019-07-14 14:59 | NUR ---
Assisted Living Contact: SW called Volodymyr ([phone]) from [facility] and left a voicemail stating that the SW would like to discuss the pts discharge for either Thursday or Thursday.
--- NOTE | 2019-07-14 15:10 | NUR ---
GROUP NOTE: SW encouraged pt to attend group on this present day discussing "discharge planning." Pt attended group but was unable to participate as pt is cognitively impaired and unable to process information and engage in conversation. Pt was calm and showing no signs of distress.
--- NOTE | 2019-07-14 15:36 | NUR ---
Assisted Living Contact: Volodymyr ([phone]) from [facility] called the SW back and stated that once he has the results of the blood test the pt can be moved in. He stated that he is aiming for an internal consultant discharge on Thursday. PIPPA stated that was acceptable.
[2019-07-14 16:00] VITALS: BP 113/56
[2019-07-14 20:27] VITALS: BP 107/73
[2019-07-14] MEDS: QUETIAPINE FUMARATE 100 MG TABLET PO SCH (21:39)
--- NOTE | 2019-07-14 22:43 | NUR ---
GPS/NURSING NOTES: PT. LAYING IN BED AWAKE. NO DISTRESS OR AGITATION NOTED. QUIET AT THIS TIME. NO C/O PAIN OR DISCOMFORT. COOPERATIVE. SAFETY ENVIRONMENT OBSERVED AT ALL TIMES. WILL CONTINUE TO MONITOR Q 15 MIN FOR SAFETY AND BEHAVIOR.
[2019-07-15] MEDS: DIVALPROEX SODIUM 500 MG TABLET.DR PO SCH ×3 (06:09→21:15)
[2019-07-15 08:00] VITALS: BP 99/68
[2019-07-15] MEDS: LACOSAMIDE 50 MG TABLET PO SCH ×2 (08:13→21:16)
[2019-07-15] MEDS: PANTOPRAZOLE 40 MG TABLET.DR PO SCH (08:13)
[2019-07-15] MEDS: CLOTRIMAZOLE 1% CREAM 24 GM TUBE TP SCH ×2 (08:14→21:16)
[2019-07-15] MEDS: Z GUARD REMEDY 2 OZ OINT TP SCH (08:14)
[2019-07-15] MEDS: ENSURE ENLIVE CHOC 237 ML CAN PO SCH ×3 (08:14→16:31)
--- NOTE | 2019-07-15 09:18 | NUR ---
RNDuranCO: MADE A FOLLOW UP TO LAB REGARDING THE RESULTS OF QUANTIFERON GOLD TB TEST. AWAITING TO CALL BACK.
[2019-07-15 16:00] VITALS: BP 99/69
--- NOTE | 2019-07-15 19:30 | NUR ---
GPS OPENING NOTE: PATIENT IN BED RESTING COMFORTABLY, IN NO APPARENT DISTRESS NOTED. ALERT AND ORIENTED X1, PATIENT REMAINS CONFUSED AND ANXIOUS. REORIENTATION PROVIDED. SAFETY PRECAUTIONS IMPLEMENTED. BED ALARM ON AND IN LOCKED POSITION. WILL CONTINUE TO MONITOR FOR PATIENT'S SAFETY.
[2019-07-15 20:05] VITALS: BP 113/67
[2019-07-15] MEDS: QUETIAPINE FUMARATE 100 MG TABLET PO SCH (21:15)
[2019-07-15 21:25] LABS: BASOPHILS # (AUTO) 0.1 /CMM (0.0-0.2); EOSINOPHILS % (AUTO) 0.3 % (0.0-6.0); HEMATOCRIT 41 % (33-45); HEMOGLOBIN 13.2 g/dL (11.5-14.8); LYMPHOCYTES # (AUTO) 1.6 /CMM (0.8-4.8); LYMPHOCYTES % (AUTO) 27.8 % (20.0-44.0); MEAN CORPUSCULAR HGB CONC 32 g/dl (31.0-36.0); MEAN CORPUSCULAR VOLUME 93 fL (82-100); MONOCYTES # (AUTO) 0.6 /CMM (0.1-1.30); MONOCYTES % (AUTO) 10.2 % (2.0-12.0); NEUTROPHILS # (AUTO) 3.5 /CMM (1.8-8.9); NEUTROPHILS % (AUTO) 60.7 % (43.0-81.0); PLATELET COUNT (AUTO) 234 /CMM (150-450); RED BLOOD CELL COUNT(AUTO) 4.41 MIL/uL (4.0-5.2); WHITE BLOOD COUNT (AUTO) 5.8 K/uL (4.3-11.0)
[2019-07-15 21:31] LABS: CREATININE 0.7 mg/dL (0.6-1.3); MAGNESIUM 2.4 mg/dL (1.8-2.4); POTASSIUM 4.1 mmol/L (3.5-5.1)
[2019-07-16] MEDS: DIVALPROEX SODIUM 500 MG TABLET.DR PO SCH ×3 (05:18→21:04)
--- NOTE | 2019-07-16 06:24 | NUR ---
GPS RN CLOSING NOTE: PATIENT IN BED ASLEEP, AROUSES EASILY. NO ACUTE DISTRESS NOTED. PATIENT REMAINS CONFUSED. REORIENTATION PROVIDED, EASILY GETS AGITATED. NEEDS FREQUENT REDIRECTION. SAFETY PRECAUTIONS IMPLEMENTED. BED ALARM ON AND IN LOCKED POSITION. WILL CONTINUE TO MONITOR FOR PT'S SAFETY.
[2019-07-16 08:00] VITALS: BP 121/73
[2019-07-16] MEDS: PANTOPRAZOLE 40 MG TABLET.DR PO SCH (08:31)
[2019-07-16] MEDS: ENSURE ENLIVE CHOC 237 ML CAN PO SCH ×3 (08:31→16:56)
[2019-07-16] MEDS: hydrOXYzine PAMOATE 25 MG CAPSULE PO PRN ×2 (08:31→16:57)
[2019-07-16] MEDS: LACOSAMIDE 50 MG TABLET PO SCH ×2 (08:31→21:04)
[2019-07-16] MEDS: CLOTRIMAZOLE 1% CREAM 24 GM TUBE TP SCH ×2 (08:32→21:03)
[2019-07-16] MEDS: Z GUARD REMEDY 2 OZ OINT TP SCH (08:32)
[2019-07-16 16:03] VITALS: BP 114/69
--- NOTE | 2019-07-16 19:32 | NUR ---
GPS OPENING NOTE: PATIENT IN BED RESTING COMFORTABLY, IN NO APPARENT DISTRESS NOTED. ALERT AND ORIENTED X1, PATIENT REMAINS CONFUSED AND ANXIOUS. REORIENTATION PROVIDED. TURNED AND REPOSITIONED Q2HRS AND PRN FOR WOUND MANAGEMENT. SAFETY PRECAUTIONS IMPLEMENTED. BED ALARM ON AND IN LOCKED POSITION. WILL CONTINUE TO MONITOR FOR PATIENT'S SAFETY.
[2019-07-16 20:06] VITALS: BP 104/55
[2019-07-16] MEDS: QUETIAPINE FUMARATE 100 MG TABLET PO SCH (21:04)
[2019-07-17] MEDS: DIVALPROEX SODIUM 500 MG TABLET.DR PO SCH ×3 (05:39→21:43)
[2019-07-17] MEDS: PANTOPRAZOLE 40 MG TABLET.DR PO SCH (07:30)
[2019-07-17 08:00] VITALS: BP 120/64
[2019-07-17 09:12] LABS: ALANINE AMINOTRANSFERASE 26 U/L (12-78); ALBUMIN 2.1 g/dL (3.4-5.0); ALKALINE PHOSPHATASE 100 U/L (46-116); ASPARTATE AMINOTRANSFERASE 29 U/L (15-37); BILIRUBIN,TOTAL 0.2 mg/dL (0.2-1.0); CALCIUM, SERUM 8.5 mg/dL (8.5-10.1); CARBON DIOXIDE 31 mmol/L (21-32); CHLORIDE 102 mmol/L (98-107); CREATININE 0.7 mg/dL (0.6-1.3); GLUCOSE 84 mg/dL (74-106); POTASSIUM 3.5 mmol/L (3.5-5.1); SODIUM SERUM 140 mmol/L (136-145); TOTAL PROTEIN, SERUM 6.3 g/dL (6.4-8.2); UREA NITROGEN, BLOOD 28 mg/dL (7-18)
[2019-07-17 09:25] LABS: BASOPHILS % (AUTO) 0.6 % (0.0-2.0); MONOCYTES # (AUTO) 0.6 /CMM (0.1-1.30); NEUTROPHILS # (AUTO) 2.3 /CMM (1.8-8.9); WHITE BLOOD COUNT (AUTO) 4.7 K/uL (4.3-11.0)
[2019-07-17 09:43] LABS: HEMATOCRIT 33 % (33-45); HEMOGLOBIN 11.1 g/dL (11.5-14.8); LYMPHOCYTES # (AUTO) 1.8 /CMM (0.8-4.8); LYMPHOCYTES % (AUTO) 37.1 % (20.0-44.0); MEAN CORPUSCULAR HGB CONC 33 g/dl (31.0-36.0); MEAN CORPUSCULAR VOLUME 92 fL (82-100); MONOCYTES % (AUTO) 12.6 % (2.0-12.0); NEUTROPHILS % (AUTO) 48.7 % (43.0-81.0); PLATELET COUNT (AUTO) 204 /CMM (150-450); RED BLOOD CELL COUNT(AUTO) 3.62 MIL/uL (4.0-5.2)
[2019-07-17] MEDS: LACOSAMIDE 50 MG TABLET PO SCH ×2 (09:48→21:43)
[2019-07-17] MEDS: CLOTRIMAZOLE 1% CREAM 24 GM TUBE TP SCH ×2 (09:49→21:45)
[2019-07-17] MEDS: Z GUARD REMEDY 2 OZ OINT TP SCH (09:50)
[2019-07-17] MEDS: ENSURE ENLIVE CHOC 237 ML CAN PO SCH ×3 (09:50→17:51)
[2019-07-17 16:00] VITALS: BP 111/59
[2019-07-17 20:12] VITALS: BP 94/61
[2019-07-17] MEDS: QUETIAPINE FUMARATE 100 MG TABLET PO SCH (21:43)
[2019-07-18] MEDS: DIVALPROEX SODIUM 500 MG TABLET.DR PO SCH ×2 (05:04→12:39)
--- NOTE | 2019-07-18 05:50 | NUR ---
GPS RN NOTE SKIN CHECK DONE, PICTURE TAKEN AND PLACED IN CHART. PT AWAKE AND ALERT X1, CALM AND COOPERATIVE. WILL CONTINUE TO MONITOR AND ENDORSE TO AM NURSE.
[2019-07-18 08:00] VITALS: BP 115/56
[2019-07-18] MEDS: LACOSAMIDE 50 MG TABLET PO SCH (08:49)
[2019-07-18] MEDS: PANTOPRAZOLE 40 MG TABLET.DR PO SCH (08:49)
[2019-07-18] MEDS: ENSURE ENLIVE CHOC 237 ML CAN PO SCH ×2 (08:50→12:20)
[2019-07-18] MEDS: CLOTRIMAZOLE 1% CREAM 24 GM TUBE TP SCH (08:50)
[2019-07-18] MEDS: Z GUARD REMEDY 2 OZ OINT TP SCH (08:50)
--- NOTE | 2019-07-18 09:15 | NUR ---
Assisted Living Contact: Kristin ([phone]) from [facility] called the SW and inquired about the blood results and the SW stated that once she has the results she will send it over. She also reinformed the staff that the POLST form does not get filled out by the members at this hospital.
--- NOTE | 2019-07-18 09:22 | NUR ---
DPOA Contact: PIPPA called the pts son, aTriq ([phone]), and informed him that the results are currently being retrieved and once the results are sent to the facility the pt will be discharged. Pts son stated that he will pick her up once the facility reviews the results. PIPPA stated that she would keep him updated.
--- NOTE | 2019-07-18 10:09 | NUR ---
GPS NURSING NOTE RECEIVED PATIENT LYING IN BED WITH NO SIGNS OF DISTRESS NOTED. PATIENT IS AOX1, CALM, COOPERATIVE. SAFETY PRECAUTIONS OBSERVED. ENVIRONMENTAL CHECKS OBSERVED. WILL CONTINUE TO MONITOR Q15 FOR SAFETY AND BEHAVIOR
--- NOTE | 2019-07-18 11:15 | NUR ---
Assisted Living Contact: PIPPA called Kristin ([phone]) from [facility] and confirmed that the results were retrieved. She stated that the pt can arrive at any time in the day once they get the pts prescriptions. PIPPA stated that she would fax them as soon as she can.
--- NOTE | 2019-07-18 11:17 | NUR ---
DPOA Contact: PIPPA called the pts son, Tariq ([phone]), and informed him that the pt was accepted to the facility and he stated that he would arrive around 2-3pm to order picker the pt and transport her to the facility.
--- NOTE | 2019-07-18 11:32 | NUR ---
Assisted Living Contact: PIPPA called Kristin ([phone]) from [facility] and inquired about the pts aftercare providers. She informed the SW about the MD follow up and stated that the pt will be seen within a few days of her admission.
--- NOTE | 2019-07-18 12:30 | NUR ---
Assisted Living Referral: PIPPA faxed the blood tb test and the prescriptions to Ambar at [facility] with attn to Katherine to the fax number: [phone].
--- NOTE | 2019-07-18 14:27 | NUR ---
Home Health Referral: PIPPA faxed a home health order for PT/OT to [facility] to the fax number: [phone].
--- NOTE | 2019-07-18 15:07 | NUR ---
GPS DISCHARGE NOTE PATIENT IS A 78 YEAR OLD FEMALE DISCHARGED TO [facility]. PATIENT IS IN STABLE CONDITION. VSS. NO ACUTE DISTRESS NOTED. NO COMPLAINTS. COMPLIANT WITH MEDICATION MANAGEMENT. COOPERATIVE WITH PLAN OF CARE. PSYCHIATRIC TREATMENT PLANS MET. MEDICAL TREATMENT PLANS DEFERRED FOR CONTINUAL MONITORING. DENIES SI/HI VAH AT THE TIME OF DISCHARGE. SKIN CHECK DONE WITH WOUND PICTURES IN CHART. EDUCATED PATIENT AND DPOA ABOUT AFTERCARE WITH COPY PROVIDED. RETURNED PERSONAL BELONGINGS TO PATIENT. MEDICATIONS RECONCILED ALONG WITH PSYCHIATRIC DISCHARGE ORDERS BY DR SHAH. FOR FOLLOW UP WITH PSYCHIATRIST AND CERTIFIED ORTHOPTIST WITHIN 1 WEEK. PATIENT LEFT THE [facility] GPS VIA PRIVATE CARE ACCOMPANIED BY SON, FLACA ([phone])
--- NOTE | 2019-07-18 15:13 | NUR ---
Discharge Note: Pt was discharged to [facility] [place] [address] [place] [address]; . Pt was picked up via her son, Tariq ([phone]), between 2-3pm. Upon discharge, the pt appeared to be in a euthymic mood and presented with a calm affect. Pt denied both suicidal and homicidal ideation as well as auditory and visual hallucinations. Pt appeared to be alert and oriented x3. Pt was referred to [facility] for physical therapy and occupational therapy. Pt will be under the care of her psychiatrist, Dr. Charli Kulkarni, located at [address] [place] [address]; and will be under the care of her timber repairer from the facility, Dr. Marshal Pack ([facility] located at [address] [address]; ; a fax of records was sent to: [phone]. Pt will be seen by the timber repairer upon admission.
== END 2019-07-18 14:45 | DRG 885 ==
LOC: ER 12:40 → GPS 19:47
PROVIDERS: ADMIT Psychiatry & Neurology Psychiatry; ATTEND Internal Medicine
DX: F29 Unspecified psychosis not due to a substance or known physiological condition (principal); G93.41 Metabolic encephalopathy; I62.03 Nontraumatic chronic subdural hemorrhage; F03.91 Unspecified dementia, unspecified severity, with behavioral disturbance; N39.0 Urinary tract infection, site not specified; G91.2 (Idiopathic) normal pressure hydrocephalus; G40.909 Epilepsy, unspecified, not intractable, without status epilepticus; Z79.899 Other long term (current) drug therapy; F41.9 Anxiety disorder, unspecified; Z87.828 Personal history of other (healed) physical injury and trauma; F33.3 Major depressive disorder, recurrent, severe with psychotic symptoms; F39 Unspecified mood [affective] disorder; Z73.6 Limitation of activities due to disability; B96.1 Klebsiella pneumoniae [K. pneumoniae] as the cause of diseases classified elsewhere
CPT/HCPCS: 36415; 71045-TC; 80048-TC; 80053-TC; 80076-TC; 80164-TC; 80305; 81000-TC; 82962-TC; 83735-TC; 84100-TC; 85025-TC; 86480; 87081-TC; 87086-TC; 87186-TC; 97116-TC; 97530-TC; G0480; Q0177